=== PATIENT | male | born 1960 | race Caucasian/White ===

== ENCOUNTER 2018-12-14 08:51 | Inpatient (IN) | payer MEDICARE, MEDICAID ==
[~2018-12-14] VITALS: Ht 172.7 cm; Wt 81.4 kg
[~2018-12-14 08:51] MED LIST: CARI350T PO; PENI500T2 PO; TRAM50TA4 PO
[2018-12-14] MEDS ORDERED: LORazepam 2 MG/ML VIAL ONE (09:21)
[2018-12-14] MEDS ORDERED: HALOPERIDOL LACTATE 5 MG/ML VIAL ONE (09:21)
[2018-12-14] MEDS ORDERED: LORazepam 2 MG/ML VIAL IM ONE ×3 (09:30→16:30)
[2018-12-14] MEDS ORDERED: KETOROLAC TROMETHAMINE 30 MG/ML VIAL IM ONE (09:30)
[2018-12-14] MEDS ORDERED: HALOPERIDOL LACTATE 5 MG/ML VIAL IM ONE ×4 (09:30→16:30)
[2018-12-14 09:45] LABS: BASOPHILS % (AUTO) 0.8 % (0.0-2.0); EOSINOPHILS % (AUTO) 0.7 % (1.0-6.0); HEMATOCRIT 43.8 % (41-53); HEMOGLOBIN 14.4 g/dL (13.5-17.5); LYMPHOCYTES # (AUTO) 2.1 K/uL (1.0-4.8); LYMPHOCYTES % (AUTO) 16.5 % (22.0-44.0); MEAN CORPUSCULAR HEMOGLOBIN 31.1 pg (26.0-34.0); MEAN CORPUSCULAR HGB CONC 32.8 G/dL (31.0-37.0); MEAN CORPUSCULAR VOLUME 95 fL (80-100); MONOCYTES # (AUTO) 0.7 K/uL (0.1-1.0); MONOCYTES % (AUTO) 5.1 % (2.0-9.0); NEUTROPHILS # (AUTO) 9.9 K/uL (1.8-7.7); NEUTROPHILS % (AUTO) 76.9 % (40.0-70.0); PLATELET COUNT (AUTO) 271 K/uL (150-450); RED BLOOD CELL COUNT(AUTO) 4.61 MIL/uL (4.50-5.90); RED CELL DISTRIBUTION WIDTH 13.1 % (11.5-14.5)
[2018-12-14 09:58] LABS: ANION GAP 13 mmol/L (8-16); CARBON DIOXIDE 23 mmol/L (22-29); CHLORIDE 106 mmol/L (98-107); CREATININE 0.65 mg/dL (0.60-1.30); GLOMERULAR FILTR. RATE CALC > 60 mL/min (>60); GLUCOSE,RANDOM 123 mg/dL (70-110); POTASSIUM 3.8 mmol/L (3.5-5.1); SODIUM SERUM 142 mmol/L (136-145); UREA NITROGEN, BLOOD 15 mg/dL (7-18)
[2018-12-14 10:21] LABS: ALANINE AMINOTRANSFERASE 42 U/L (12-78); ALBUMIN 3.8 g/dL (3.4-5.0); ALKALINE PHOSPHATASE 79 U/L (46-116); ASPARTATE AMINOTRANSFERASE 29 U/L (15-37); BILIRUBIN,TOTAL 0.4 mg/dL (0.1-1.0); CREATINE KINASE, TOTAL ONLY 155 U/L (39-308); TOTAL PROTEIN, SERUM 7.6 g/dL (6.4-8.2)
[2018-12-14 15:23] LABS: APPEARANCE,URINE CLEAR (CLEAR); BILIRUBIN,URINE NEGATIVE (NEGATIVE); GLUCOSE, URINE (UA) NEGATIVE (NEGATIVE); KETONES,URINE NEGATIVE (NEGATIVE); LEUKOCYTE ESTERASE ,URINE NEGATIVE (NEGATIVE); NITRATE,URINE NEGATIVE (NEGATIVE); OCCULT BLOOD,URINE NEGATIVE (NEGATIVE); PROTEIN,URINE NEGATIVE (NEGATIVE); UROBILINOGEN,URINE 0.2 mg/dL (<=1.0)
[2018-12-14 15:28] LABS: AMPHET/METH SCREEN,URINE NEGATIVE (NEGATIVE); BARBITURATE SCREEN, URINE NEGATIVE (NEGATIVE); BENZODIAZEPINES SCREEN,URINE NEGATIVE (NEGATIVE); CANNABINOID SCREEN,URINE NEGATIVE (NEGATIVE); COCAINE SCREEN,URINE NEGATIVE (NEGATIVE); METHADONE SCREEN, URINE NEGATIVE (NEGATIVE); OPIATE SCREEN,URINE NEGATIVE (NEGATIVE); PHENCYCLIDINE SCREEN,URINE NEGATIVE (NEGATIVE)
[2018-12-14 15:34] LABS: BACTERIA,URINE None Seen /HPF (None Seen); RBC,URINE 0-2 /HPF (0-2); SQUAMOUS EPITHELIAL CELL,UR Rare /LPF (None Seen); WBC,URINE 0-2 /HPF (0-5)
[2018-12-14] MEDS ORDERED: DiphenhydrAMINE HCL 50 MG/ML VIAL IM ONE (16:30)
[2018-12-14] MEDS ORDERED: IBUPROFEN 600 MG TABLET PO ONE (19:15)
[2018-12-14] MEDS: QUEtiapine FUMARATE 100 MG TABLET PO SCH (20:13)
[2018-12-14] MEDS ORDERED: LORazepam 1 MG TABLET PO ONE (20:45)
[2018-12-15 02:22] VITALS: BP 103/78
[2018-12-15] MEDS: LORazepam 2 MG TABLET PO PRN ×3 (03:02→18:54)
[2018-12-15] MEDS ORDERED: ACETAMINOPHEN 325 MG TABLET PO PRN ×2 (06:30→23:45)
[2018-12-15] MEDS ORDERED: IBUPROFEN 600 MG TABLET PO PRN (06:30)
[2018-12-15 09:31] VITALS: BP 130/86
[2018-12-15] MEDS: VENLAFAXINE HCL 75 MG ER CAPSULE PO SCH (10:42)
[2018-12-15] MEDS: HALOPERIDOL 5 MG TABLET PO PRN ×2 (13:01→18:54)
[2018-12-15 16:26] VITALS: BP 135/87
[2018-12-15] MEDS: QUEtiapine FUMARATE 100 MG TABLET PO SCH (20:58)
[2018-12-16 04:43] VITALS: BP 120/69
[2018-12-16] MEDS: LORazepam 2 MG TABLET PO PRN ×2 (04:51→13:09)
[2018-12-16 06:57] LABS: BASOPHILS % (AUTO) 0.6 % (0.0-2.0); EOSINOPHILS % (AUTO) 2.1 % (1.0-6.0); HEMATOCRIT 43.2 % (41-53); MEAN CORPUSCULAR HEMOGLOBIN 32.2 pg (26.0-34.0); MEAN CORPUSCULAR HGB CONC 34.6 G/dL (31.0-37.0); MEAN CORPUSCULAR VOLUME 93 fL (80-100); MONOCYTES # (AUTO) 0.7 K/uL (0.1-1.0); MONOCYTES % (AUTO) 6.9 % (2.0-9.0); NEUTROPHILS # (AUTO) 6.4 K/uL (1.8-7.7); NEUTROPHILS % (AUTO) 61.4 % (40.0-70.0); PLATELET COUNT (AUTO) 282 K/uL (150-450); RED BLOOD CELL COUNT(AUTO) 4.64 MIL/uL (4.50-5.90); RED CELL DISTRIBUTION WIDTH 12.8 % (11.5-14.5)
[2018-12-16 07:38] LABS: CHOL/HDL RATIO 4.9 (4.2-7.3); FREE T4 (FREE THYROXINE) 0.79 ng/dL (0.76-1.46); THYROID STIMULATING HORMONE 1.72 uIU/mL (0.36-3.74)
[2018-12-16 08:49] VITALS: BP 156/69
[2018-12-16] MEDS: HALOPERIDOL 5 MG TABLET PO PRN ×2 (08:49→13:09)
[2018-12-16] MEDS: VENLAFAXINE HCL 75 MG ER CAPSULE PO SCH (08:49)
[2018-12-16] MEDS: CEPHALEXIN MONOHYDRATE 500 MG CAPSULE PO SCH ×3 (13:09→20:19)
[2018-12-16] MEDS: IBUPROFEN 600 MG TABLET PO PRN (14:29)
[2018-12-16 17:16] VITALS: BP 132/70
[2018-12-16] MEDS: QUEtiapine FUMARATE 100 MG TABLET PO SCH (20:19)
[2018-12-17 01:50] VITALS: BP 145/77
[2018-12-17] MEDS: LORazepam 2 MG TABLET PO PRN ×3 (02:09→21:43)
[2018-12-17] MEDS: VENLAFAXINE HCL 75 MG ER CAPSULE PO SCH (10:09)
[2018-12-17] MEDS: CEPHALEXIN MONOHYDRATE 500 MG CAPSULE PO SCH ×4 (10:09→21:43)
[2018-12-17] MEDS: HALOPERIDOL 5 MG TABLET PO PRN (10:10)
[2018-12-17] MEDS: IBUPROFEN 600 MG TABLET PO PRN (10:10)
[2018-12-17 17:41] VITALS: BP 119/68
[2018-12-17] MEDS: QUEtiapine FUMARATE 100 MG TABLET PO SCH (21:43)
[2018-12-18 09:54] VITALS: BP 144/92
[2018-12-18] MEDS: CEPHALEXIN MONOHYDRATE 500 MG CAPSULE PO SCH ×4 (09:56→20:10)
[2018-12-18] MEDS: IBUPROFEN 600 MG TABLET PO PRN (09:56)
[2018-12-18] MEDS: VENLAFAXINE HCL 75 MG ER CAPSULE PO SCH (09:56)
[2018-12-18] MEDS: LORazepam 2 MG TABLET PO PRN ×2 (09:56→20:39)
[2018-12-18 16:52] VITALS: BP 133/90
[2018-12-18] MEDS: QUEtiapine FUMARATE 100 MG TABLET PO SCH (20:10)
[2018-12-18] MEDS: HALOPERIDOL 5 MG TABLET PO PRN (20:39)
[2018-12-19] MEDS: HALOPERIDOL 5 MG TABLET PO PRN ×2 (02:08→17:05)
[2018-12-19] MEDS: LORazepam 2 MG TABLET PO PRN ×2 (02:09→17:05)
[2018-12-19 05:55] VITALS: BP 128/90
[2018-12-19 10:00] VITALS: BP 146/92
[2018-12-19] MEDS: CEPHALEXIN MONOHYDRATE 500 MG CAPSULE PO SCH ×4 (10:02→21:19)
[2018-12-19] MEDS: VENLAFAXINE HCL 75 MG ER CAPSULE PO SCH (10:02)
[2018-12-19] MEDS: IBUPROFEN 600 MG TABLET PO PRN (10:03)
[2018-12-19] MEDS: AmLODIPine BESYLATE 2.5 MG TABLET PO SCH (11:02)
[2018-12-19 16:37] VITALS: BP 117/73
[2018-12-19] MEDS: QUEtiapine FUMARATE 100 MG TABLET PO SCH (21:19)
[2018-12-20] MEDS: LORazepam 2 MG TABLET PO PRN ×2 (00:02→09:08)
[2018-12-20] MEDS: IBUPROFEN 600 MG TABLET PO PRN ×2 (00:02→09:08)
[2018-12-20 00:04] VITALS: BP 142/73
[2018-12-20 09:06] VITALS: BP 146/95
[2018-12-20] MEDS: VENLAFAXINE HCL 75 MG ER CAPSULE PO SCH (09:08)
[2018-12-20] MEDS: CEPHALEXIN MONOHYDRATE 500 MG CAPSULE PO SCH ×3 (09:08→17:16)
[2018-12-20] MEDS: AmLODIPine BESYLATE 2.5 MG TABLET PO SCH (09:08)
[2018-12-20] MEDS ORDERED: VENL-67 PO (10:13)
[2018-12-20] MEDS ORDERED: QUET100T PO (10:13)
[2018-12-20] MEDS ORDERED: AMLO2.5T4 PO (10:15)
[2018-12-20] MEDS ORDERED: CEPH500 PO (10:16)
== END 2018-12-20 17:30 | disposition home or self-care (01) | DRG 885 ==
LOC: EMS 08:52 → 3EI 12-15 01:11
PROVIDERS: ADMIT Psychiatry & Neurology Psychiatry; ATTEND Psychiatry & Neurology Psychiatry
DX: F33.2 Major depressive disorder, recurrent severe without psychotic features (principal); R45.851 Suicidal ideations; F17.210 Nicotine dependence, cigarettes, uncomplicated; D72.829 Elevated white blood cell count, unspecified; Z91.19 Patient's noncompliance with other medical treatment and regimen; Z91.5 Personal history of self-harm; M54.2 Cervicalgia
CPT/HCPCS: 73552; 80074; 83036; 84439; 84443; 96372; G0480; J1200; J1630; J1885; J2060

== ENCOUNTER 2018-12-21 01:33 | Emergency (ER) | payer OTHER ==
[~2018-12-21] VITALS: Ht 172.7 cm; Wt 81.8 kg
[~2018-12-21 01:33] MED LIST changes: +AMLO2.5T4 PO; +CEPH500 PO; +QUET100T PO; +VENL-67 PO
[2018-12-21] MEDS ORDERED: METHOCARBAMOL 500 MG TABLET PO ONE (02:00)
[2018-12-21] MEDS ORDERED: DIAZEPAM 5 MG/ML 2 ML SYRINGE IM ONE (02:45)
[2018-12-21 03:34] VITALS: BP 140/80
== END 2018-12-21 03:56 | disposition home or self-care (01) ==
LOC: EMS 01:36
DX: S76.912A Strain of unspecified muscles, fascia and tendons at thigh level, left thigh, initial encounter (principal); W19.XXXA Unspecified fall, initial encounter; Y93.89 Activity, other specified; Y92.89 Other specified places as the place of occurrence of the external cause; Y99.8 Other external cause status
CPT/HCPCS: 96372; 99283; J1885

== ENCOUNTER 2019-01-05 05:35 | Inpatient (IN) | payer OTHER ==
[~2019-01-05] VITALS: Ht 172.7 cm; Wt 81.0 kg
[~2019-01-05 05:35] MED LIST changes: -CARI350T PO; -PENI500T2 PO; -TRAM50TA4 PO
[2019-01-05] MEDS ORDERED: HALOPERIDOL LACTATE 5 MG/ML VIAL IM ONE ×2 (07:00→08:45)
[2019-01-05] MEDS ORDERED: DiphenhydrAMINE HCL 50 MG/ML VIAL IM ONE ×2 (07:00→08:45)
[2019-01-05] MEDS ORDERED: LORazepam 2 MG/ML VIAL IM ONE ×2 (07:00→08:45)
[2019-01-05 09:13] LABS: BASOPHILS % (AUTO) 0.4 % (0.0-2.0); EOSINOPHILS % (AUTO) 0.3 % (1.0-6.0); HEMATOCRIT 39.5 % (41-53); HEMOGLOBIN 13.1 g/dL (13.5-17.5); LYMPHOCYTES # (AUTO) 2.1 K/uL (1.0-4.8); LYMPHOCYTES % (AUTO) 16.9 % (22.0-44.0); MEAN CORPUSCULAR HEMOGLOBIN 31.1 pg (26.0-34.0); MEAN CORPUSCULAR HGB CONC 33.2 G/dL (31.0-37.0); MEAN CORPUSCULAR VOLUME 94 fL (80-100); MONOCYTES # (AUTO) 0.7 K/uL (0.1-1.0); MONOCYTES % (AUTO) 5.3 % (2.0-9.0); NEUTROPHILS # (AUTO) 9.6 K/uL (1.8-7.7); NEUTROPHILS % (AUTO) 77.1 % (40.0-70.0); PLATELET COUNT (AUTO) 283 K/uL (150-450); RED BLOOD CELL COUNT(AUTO) 4.22 MIL/uL (4.50-5.90)
[2019-01-05 09:35] LABS: ANION GAP 15 mmol/L (8-16); CALCIUM, TOTAL 9.1 mg/dL (8.8-10.5); CARBON DIOXIDE 23 mmol/L (22-29); CHLORIDE 105 mmol/L (98-107); GLOMERULAR FILTR. RATE CALC > 60 mL/min (>60); GLUCOSE,RANDOM 102 mg/dL (70-110); POTASSIUM 3.3 mmol/L (3.5-5.1); SODIUM SERUM 143 mmol/L (136-145); UREA NITROGEN, BLOOD 19 mg/dL (7-18)
[2019-01-05 09:46] LABS: LACTIC ACID 1.9 mmol/L (0.4-2.0)
[2019-01-05 09:59] LABS: ALANINE AMINOTRANSFERASE 42 U/L (12-78); ALBUMIN 3.8 g/dL (3.4-5.0); ALKALINE PHOSPHATASE 81 U/L (46-116); ASPARTATE AMINOTRANSFERASE 32 U/L (15-37); BILIRUBIN,TOTAL 0.6 mg/dL (0.1-1.0); CREATINE KINASE, TOTAL ONLY 408 U/L (39-308); TOTAL PROTEIN, SERUM 7.1 g/dL (6.4-8.2)
[2019-01-05] MEDS ORDERED: ONDANSETRON HCL 4 MG TABLET PO ONE (10:00)
[2019-01-05] MEDS ORDERED: OxyCODONE HCL/ACETAMINOPHEN 5-325 MG TABLET PO ONE (10:00)
[2019-01-05 13:08] VITALS: BP 122/84
[2019-01-05] MEDS ORDERED: ACETAMINOPHEN 325 MG TABLET PO PRN (13:15)
[2019-01-05] MEDS ORDERED: BACITRACIN 0.9 GM PACKET OINTMENT TP ONE (13:15)
[2019-01-05 16:15] VITALS: BP 126/78
[2019-01-05] MEDS: QUEtiapine FUMARATE 100 MG TABLET PO SCH (20:54)
[2019-01-05] MEDS ORDERED: POTASSIUM CHLORIDE 20 MEQ ER TABLET PO ONE (22:00)
[2019-01-05] MEDS: ZOLPIDEM TARTRATE 10 MG TABLET PO PRN (23:44)
[2019-01-06] MEDS: LORazepam 2 MG TABLET PO PRN ×2 (03:04→09:26)
[2019-01-06 03:55] VITALS: BP 130/72
[2019-01-06] MEDS: AmLODIPine BESYLATE 2.5 MG TABLET PO SCH (09:26)
[2019-01-06] MEDS: HALOPERIDOL 5 MG TABLET PO PRN (09:26)
[2019-01-06] MEDS: VENLAFAXINE HCL 75 MG ER CAPSULE PO SCH (09:26)
[2019-01-06 10:04] VITALS: BP 129/77
[2019-01-06 10:23] VITALS: BP 160/70
[2019-01-06] MEDS: IBUPROFEN 600 MG TABLET PO PRN (10:23)
[2019-01-06] MEDS: BACITRACIN 28.4 GM OINTMENT TP SCH (10:41)
[2019-01-06 16:39] VITALS: BP 145/73
[2019-01-06] MEDS: QUEtiapine FUMARATE 100 MG TABLET PO SCH (20:35)
[2019-01-07] MEDS: ZOLPIDEM TARTRATE 10 MG TABLET PO PRN (02:48)
[2019-01-07] MEDS: LORazepam 2 MG TABLET PO PRN ×2 (02:48→10:30)
[2019-01-07] MEDS: HALOPERIDOL 5 MG TABLET PO PRN ×2 (02:48→10:30)
[2019-01-07 03:40] VITALS: BP 134/100
[2019-01-07] MEDS: AmLODIPine BESYLATE 2.5 MG TABLET PO SCH (08:27)
[2019-01-07] MEDS: VENLAFAXINE HCL 75 MG ER CAPSULE PO SCH (08:27)
[2019-01-07] MEDS: MULTIVITAMINS WITH MINERALS, THERAPEUTIC TABLET PO SCH (08:27)
[2019-01-07 08:44] VITALS: BP 154/90
[2019-01-07] MEDS: IBUPROFEN 600 MG TABLET PO PRN (10:30)
[2019-01-07] MEDS: BACITRACIN 28.4 GM OINTMENT TP SCH (10:31)
[2019-01-07] MEDS: QUEtiapine FUMARATE 100 MG TABLET PO SCH (20:38)
[2019-01-07 20:42] VITALS: BP 149/82
[2019-01-08] MEDS: MULTIVITAMINS WITH MINERALS, THERAPEUTIC TABLET PO SCH (08:52)
[2019-01-08] MEDS: VENLAFAXINE HCL 75 MG ER CAPSULE PO SCH (08:52)
[2019-01-08] MEDS: AmLODIPine BESYLATE 5 MG TABLET PO SCH (08:52)
[2019-01-08 09:51] VITALS: BP 160/90
[2019-01-08] MEDS: BACITRACIN 28.4 GM OINTMENT TP SCH (12:26)
[2019-01-08 16:00] VITALS: BP 126/79
[2019-01-08] MEDS: QUEtiapine FUMARATE 100 MG TABLET PO SCH (20:30)
[2019-01-09 08:00] VITALS: BP 169/100
[2019-01-09] MEDS: VENLAFAXINE HCL 75 MG ER CAPSULE PO SCH (09:46)
[2019-01-09] MEDS: MULTIVITAMINS WITH MINERALS, THERAPEUTIC TABLET PO SCH (09:46)
[2019-01-09] MEDS: AmLODIPine BESYLATE 5 MG TABLET PO SCH (09:46)
[2019-01-09 10:05] VITALS: BP 150/89
[2019-01-09 10:21] VITALS: BP 154/90
[2019-01-09] MEDS: BACITRACIN 28.4 GM OINTMENT TP SCH (13:16)
[2019-01-09] MEDS: LORazepam 2 MG TABLET PO PRN (14:54)
[2019-01-09] MEDS: HALOPERIDOL 5 MG TABLET PO PRN (14:54)
== END 2019-01-09 17:45 | disposition home or self-care (01) | DRG 885 ==
LOC: EMS 05:37 → 3EI 10:53
PROVIDERS: ATTEND Psychiatry & Neurology Psychiatry
DX: F33.2 Major depressive disorder, recurrent severe without psychotic features (principal); R45.851 Suicidal ideations; M62.82 Rhabdomyolysis; F41.9 Anxiety disorder, unspecified; I10 Essential (primary) hypertension; F12.90 Cannabis use, unspecified, uncomplicated; D72.829 Elevated white blood cell count, unspecified; D64.9 Anemia, unspecified; E78.5 Hyperlipidemia, unspecified; E87.6 Hypokalemia; F10.10 Alcohol abuse, uncomplicated; R41.843 Psychomotor deficit; Z80.9 Family history of malignant neoplasm, unspecified; G20 Parkinson's disease
CPT/HCPCS: 70450; 73503; 83605; 87081; 93971; G0480; J1200; J1630; J2060; Q0162

== ENCOUNTER 2019-01-22 12:33 | Inpatient (IN) | payer OTHER, MEDICAID ==
[~2019-01-22] VITALS: Ht 172.7 cm; Wt 84.5 kg
[~2019-01-22 12:33] MED LIST changes: -CEPH500 PO
[2019-01-22] MEDS ORDERED: OLAN2.5T3 PO (12:46)
[2019-01-22] MEDS ORDERED: QUET100T PO (12:46)
[2019-01-22] MEDS ORDERED: ROPI0.257 PO (12:46)
[2019-01-22] MEDS ORDERED: LORazepam 1 MG TABLET PO ONE (13:45)
[2019-01-22 14:09] LABS: AMPHET/METH SCREEN,URINE NEGATIVE (NEGATIVE); BARBITURATE SCREEN, URINE NEGATIVE (NEGATIVE); BENZODIAZEPINES SCREEN,URINE NEGATIVE (NEGATIVE); BILIRUBIN,URINE NEGATIVE (NEGATIVE); CANNABINOID SCREEN,URINE NEGATIVE (NEGATIVE); COCAINE SCREEN,URINE NEGATIVE (NEGATIVE); GLUCOSE, URINE (UA) NEGATIVE (NEGATIVE); KETONES,URINE NEGATIVE (NEGATIVE); LEUKOCYTE ESTERASE ,URINE NEGATIVE (NEGATIVE); METHADONE SCREEN, URINE NEGATIVE (NEGATIVE); NITRATE,URINE NEGATIVE (NEGATIVE); OCCULT BLOOD,URINE NEGATIVE (NEGATIVE); OPIATE SCREEN,URINE NEGATIVE (NEGATIVE); PROTEIN,URINE NEGATIVE (NEGATIVE); UROBILINOGEN,URINE 0.2 mg/dL (<=1.0)
[2019-01-22 14:11] LABS: APPEARANCE,URINE CLEAR (CLEAR); PHENCYCLIDINE SCREEN,URINE NEGATIVE (NEGATIVE)
[2019-01-22] MEDS ORDERED: HALOPERIDOL 5 MG TABLET PO PRN (15:00)
[2019-01-22] MEDS ORDERED: ZOLPIDEM TARTRATE 10 MG TABLET PO PRN (15:00)
[2019-01-22] MEDS ORDERED: ACETAMINOPHEN 325 MG TABLET PO PRN (15:45)
[2019-01-22] MEDS ORDERED: IBUPROFEN 600 MG TABLET PO PRN (15:45)
[2019-01-22 19:30] VITALS: BP 133/88
[2019-01-22] MEDS: ATORVASTATIN CALCIUM 10 MG TABLET PO SCH (20:41)
[2019-01-22] MEDS: LORazepam 2 MG TABLET PO PRN (20:41)
[2019-01-23] VITALS (9 sets, daily range): BP systolic 108–138; BP diastolic 60–88
[2019-01-23] MEDS: AmLODIPine BESYLATE 10 MG TABLET PO SCH (08:33)
[2019-01-23] MEDS: VENLAFAXINE HCL 75 MG ER CAPSULE PO SCH (08:33)
[2019-01-23] MEDS: LORazepam 2 MG TABLET PO PRN (13:18)
[2019-01-23] MEDS: ATORVASTATIN CALCIUM 10 MG TABLET PO SCH (20:30)
[2019-01-23] MEDS: QUEtiapine FUMARATE 300 MG TABLET PO SCH (20:30)
[2019-01-24 07:09] VITALS: BP 106/65
[2019-01-24] MEDS: AmLODIPine BESYLATE 10 MG TABLET PO SCH (08:01)
[2019-01-24] MEDS: LORazepam 1 MG TABLET PO PRN ×2 (08:01→15:18)
[2019-01-24] MEDS: VENLAFAXINE HCL 75 MG ER CAPSULE PO SCH (08:01)
[2019-01-24 08:17] VITALS: BP 126/90
[2019-01-24 10:37] VITALS: BP 112/72
[2019-01-24 16:00] VITALS: BP 141/88
[2019-01-24] MEDS: QUEtiapine FUMARATE 300 MG TABLET PO SCH (20:28)
[2019-01-24] MEDS: ATORVASTATIN CALCIUM 10 MG TABLET PO SCH (20:28)
[2019-01-25 00:34] VITALS: BP 108/76
[2019-01-25 06:31] VITALS: BP 110/80
[2019-01-25] MEDS ORDERED: VENLAFAXINE HCL 150 MG ER CAPSULE PO SCH (09:00)
[2019-01-25 10:00] VITALS: BP 112/67
[2019-01-25] MEDS: AmLODIPine BESYLATE 10 MG TABLET PO SCH (10:00)
[2019-01-25] MEDS: LORazepam 1 MG TABLET PO PRN (10:52)
[2019-01-25 13:21] VITALS: BP 110/68
[2019-01-25] MEDS ORDERED: VENL-68 PO (14:56)
[2019-01-25] MEDS ORDERED: ATOR10TA84 PO (14:56)
[2019-01-25] MEDS ORDERED: AMLO10TA7 PO (14:56)
[2019-01-25 16:34] VITALS: BP 107/85
== END 2019-01-25 18:15 | disposition home or self-care (01) | DRG 885 ==
LOC: EMS 12:33 → B2S 18:20
PROVIDERS: ADMIT Psychiatry & Neurology Psychiatry; ATTEND Psychiatry & Neurology Psychiatry
DX: F33.2 Major depressive disorder, recurrent severe without psychotic features (principal); R45.851 Suicidal ideations; D64.9 Anemia, unspecified; D72.829 Elevated white blood cell count, unspecified; E78.5 Hyperlipidemia, unspecified; F12.90 Cannabis use, unspecified, uncomplicated; F25.9 Schizoaffective disorder, unspecified; G20 Parkinson's disease; I10 Essential (primary) hypertension; M16.12 Unilateral primary osteoarthritis, left hip; Z87.891 Personal history of nicotine dependence; Z91.19 Patient's noncompliance with other medical treatment and regimen; Z91.5 Personal history of self-harm; Z80.9 Family history of malignant neoplasm, unspecified
CPT/HCPCS: 87081

== ENCOUNTER 2019-01-28 20:13 | Inpatient (IN) | payer OTHER, MEDICAID ==
[~2019-01-28] VITALS: Ht 172.7 cm; Wt 83.7 kg
[~2019-01-28 20:13] MED LIST changes: +AMLO10TA7 PO; -AMLO2.5T4 PO; +ATOR10TA84 PO; -VENL-67 PO; +VENL-68 PO
[2019-01-28] MEDS ORDERED: QUET300T2 PO (20:29)
[2019-01-28 21:43] LABS: AMPHET/METH SCREEN,URINE NEGATIVE (NEGATIVE); BARBITURATE SCREEN, URINE NEGATIVE (NEGATIVE); BENZODIAZEPINES SCREEN,URINE NEGATIVE (NEGATIVE); CANNABINOID SCREEN,URINE NEGATIVE (NEGATIVE); COCAINE SCREEN,URINE NEGATIVE (NEGATIVE); METHADONE SCREEN, URINE NEGATIVE (NEGATIVE); OPIATE SCREEN,URINE NEGATIVE (NEGATIVE); PHENCYCLIDINE SCREEN,URINE NEGATIVE (NEGATIVE)
[2019-01-28] MEDS ORDERED: HALOPERIDOL 5 MG TABLET PO ONE (21:45)
[2019-01-28 21:49] LABS: BASOPHILS % (AUTO) 0.8 % (0.0-2.0); EOSINOPHILS % (AUTO) 1.8 % (1.0-6.0); HEMATOCRIT 41.6 % (41-53); HEMOGLOBIN 13.6 g/dL (13.5-17.5); LYMPHOCYTES % (AUTO) 31.2 % (22.0-44.0); MEAN CORPUSCULAR HEMOGLOBIN 31.5 pg (26.0-34.0); MEAN CORPUSCULAR HGB CONC 32.7 G/dL (31.0-37.0); MEAN CORPUSCULAR VOLUME 96 fL (80-100); MONOCYTES # (AUTO) 0.7 K/uL (0.1-1.0); MONOCYTES % (AUTO) 6.8 % (2.0-9.0); NEUTROPHILS # (AUTO) 5.7 K/uL (1.8-7.7); NEUTROPHILS % (AUTO) 59.4 % (40.0-70.0); PLATELET COUNT (AUTO) 287 K/uL (150-450); RED BLOOD CELL COUNT(AUTO) 4.32 MIL/uL (4.50-5.90); RED CELL DISTRIBUTION WIDTH 13.6 % (11.5-14.5)
[2019-01-28 21:59] LABS: ANION GAP 12 mmol/L (8-16); CALCIUM, TOTAL 8.9 mg/dL (8.8-10.5); CARBON DIOXIDE 23 mmol/L (22-29); CHLORIDE 104 mmol/L (98-107); CREATININE 0.67 mg/dL (0.60-1.30); GLOMERULAR FILTR. RATE CALC > 60 mL/min (>60); GLUCOSE,RANDOM 117 mg/dL (70-110); POTASSIUM 3.9 mmol/L (3.5-5.1); SODIUM SERUM 139 mmol/L (136-145); UREA NITROGEN, BLOOD 20 mg/dL (7-18)
[2019-01-28 22:08] LABS: ALANINE AMINOTRANSFERASE 37 U/L (12-78); ALBUMIN 3.7 g/dL (3.4-5.0); ALKALINE PHOSPHATASE 101 U/L (46-116); ASPARTATE AMINOTRANSFERASE 26 U/L (15-37); BILIRUBIN,TOTAL 0.3 mg/dL (0.1-1.0); TOTAL PROTEIN, SERUM 7.4 g/dL (6.4-8.2)
[2019-01-29 01:29] VITALS: BP 137/81
[2019-01-29 08:20] VITALS: BP 116/89
[2019-01-29] MEDS: LORazepam 1 MG TABLET PO PRN ×2 (10:23→18:17)
[2019-01-29] MEDS ORDERED: LORazepam 2 MG/ML VIAL ONE (12:13)
[2019-01-29] MEDS ORDERED: DiphenhydrAMINE HCL 50 MG/ML VIAL ONE (12:13)
[2019-01-29] MEDS ORDERED: HALOPERIDOL LACTATE 5 MG/ML VIAL ONE (12:13)
[2019-01-29] MEDS ORDERED: LORazepam 2 MG/ML VIAL IM ONE (14:15)
[2019-01-29] MEDS ORDERED: HALOPERIDOL LACTATE 5 MG/ML VIAL IM ONE (14:15)
[2019-01-29] MEDS ORDERED: DiphenhydrAMINE HCL 50 MG/ML VIAL IM ONE (14:15)
[2019-01-29 17:19] VITALS: BP 136/82
[2019-01-29] MEDS: HALOPERIDOL 5 MG TABLET PO PRN (18:17)
[2019-01-29] MEDS ORDERED: ACETAMINOPHEN 325 MG TABLET PO PRN (20:00)
[2019-01-29] MEDS: ZOLPIDEM TARTRATE 10 MG TABLET PO PRN (20:28)
[2019-01-29] MEDS: QUEtiapine FUMARATE 300 MG TABLET PO SCH (20:28)
[2019-01-29] MEDS: ATORVASTATIN CALCIUM 10 MG TABLET PO SCH (20:31)
[2019-01-30 08:01] VITALS: BP 116/71
[2019-01-30] MEDS: AmLODIPine BESYLATE 10 MG TABLET PO SCH (08:17)
[2019-01-30] MEDS: VENLAFAXINE HCL 150 MG ER CAPSULE PO SCH (08:17)
[2019-01-30] MEDS: LORazepam 1 MG TABLET PO PRN ×2 (08:22→17:26)
[2019-01-30] MEDS: HALOPERIDOL 5 MG TABLET PO PRN ×2 (13:01→17:26)
[2019-01-30 16:02] VITALS: BP 124/78
[2019-01-30] MEDS: QUEtiapine FUMARATE 300 MG TABLET PO SCH (20:15)
[2019-01-30] MEDS: ATORVASTATIN CALCIUM 10 MG TABLET PO SCH (20:15)
[2019-01-30] MEDS: ZOLPIDEM TARTRATE 10 MG TABLET PO PRN (20:15)
[2019-01-31 08:00] VITALS: BP 116/73
[2019-01-31] MEDS: AmLODIPine BESYLATE 10 MG TABLET PO SCH (08:35)
[2019-01-31] MEDS: LORazepam 1 MG TABLET PO PRN ×3 (08:35→18:51)
[2019-01-31] MEDS: VENLAFAXINE HCL 150 MG ER CAPSULE PO SCH (08:35)
[2019-01-31] MEDS: HALOPERIDOL 5 MG TABLET PO PRN ×2 (13:31→18:51)
[2019-01-31 16:29] VITALS: BP 119/71
[2019-01-31] MEDS: ATORVASTATIN CALCIUM 10 MG TABLET PO SCH (20:48)
[2019-01-31] MEDS: QUEtiapine FUMARATE 300 MG TABLET PO SCH (20:48)
[2019-02-01 08:19] VITALS: BP 123/80
[2019-02-01] MEDS: AmLODIPine BESYLATE 10 MG TABLET PO SCH (09:04)
[2019-02-01] MEDS: VENLAFAXINE HCL 150 MG ER CAPSULE PO SCH (09:04)
[2019-02-01] MEDS: IBUPROFEN 600 MG TABLET PO PRN (09:38)
[2019-02-01] MEDS: LORazepam 1 MG TABLET PO PRN ×2 (10:02→17:25)
[2019-02-01 16:10] VITALS: BP 123/87
[2019-02-01] MEDS: QUEtiapine FUMARATE 300 MG TABLET PO SCH (20:05)
[2019-02-01] MEDS: ATORVASTATIN CALCIUM 10 MG TABLET PO SCH (20:05)
[2019-02-02 08:13] VITALS: BP 112/85
[2019-02-02] MEDS: AmLODIPine BESYLATE 10 MG TABLET PO SCH (08:27)
[2019-02-02] MEDS: VENLAFAXINE HCL 150 MG ER CAPSULE PO SCH (08:27)
[2019-02-02] MEDS: IBUPROFEN 600 MG TABLET PO PRN (08:53)
[2019-02-02] MEDS: LORazepam 1 MG TABLET PO PRN ×2 (08:53→18:05)
[2019-02-02 18:00] VITALS: BP 125/79
[2019-02-02] MEDS: ATORVASTATIN CALCIUM 10 MG TABLET PO SCH (20:11)
[2019-02-02] MEDS: QUEtiapine FUMARATE 300 MG TABLET PO SCH (20:11)
[2019-02-03 09:10] VITALS: BP 122/81
[2019-02-03] MEDS: AmLODIPine BESYLATE 10 MG TABLET PO SCH (09:17)
[2019-02-03] MEDS: VENLAFAXINE HCL 75 MG ER CAPSULE PO SCH (09:17)
[2019-02-03] MEDS: LORazepam 1 MG TABLET PO PRN ×2 (10:21→19:30)
[2019-02-03] MEDS: HALOPERIDOL 5 MG TABLET PO PRN ×2 (14:16→19:33)
[2019-02-03 16:27] VITALS: BP 127/76
[2019-02-03] MEDS: QUEtiapine FUMARATE 300 MG TABLET PO SCH (20:49)
[2019-02-03] MEDS: ATORVASTATIN CALCIUM 10 MG TABLET PO SCH (20:49)
[2019-02-04 06:15] VITALS: BP 121/68
[2019-02-04] MEDS: VENLAFAXINE HCL 75 MG ER CAPSULE PO SCH ×2 (09:00→09:44)
[2019-02-04] MEDS: AmLODIPine BESYLATE 10 MG TABLET PO SCH ×2 (09:00→09:44)
[2019-02-04] MEDS ORDERED: VENL-68 PO (10:43)
== END 2019-02-04 13:00 | disposition home or self-care (01) | DRG 885 ==
LOC: EMS 20:14 → B2S 23:09 → B3A 23:38 → B2X 01-31 19:30
PROVIDERS: ADMIT Psychiatry & Neurology Psychiatry; ATTEND Psychiatry & Neurology Psychiatry
DX: F33.9 Major depressive disorder, recurrent, unspecified (principal); R45.851 Suicidal ideations; E78.5 Hyperlipidemia, unspecified; I10 Essential (primary) hypertension; M16.12 Unilateral primary osteoarthritis, left hip; D64.9 Anemia, unspecified; E87.6 Hypokalemia
CPT/HCPCS: 70450; 87081; G0480; J1200; J1630; J2060

== ENCOUNTER 2019-02-05 05:04 | Emergency (ER) | payer OTHER ==
[~2019-02-05] VITALS: Ht 172.7 cm; Wt 86.8 kg
[~2019-02-05 05:04] MED LIST changes: -AMLO10TA7 PO; -ATOR10TA84 PO; -QUET100T PO; +QUET300T2 PO
[2019-02-05] MEDS ORDERED: KETOROLAC TROMETHAMINE 60 MG/2 ML VIAL IM ONE (05:45)
[2019-02-05] MEDS ORDERED: ACETAMINOPHEN 325 MG TABLET PO ONE (06:30)
[2019-02-05 08:08] VITALS: BP 166/89
== END 2019-02-05 08:08 | disposition home or self-care (01) ==
LOC: EMS 05:07
DX: S80.212A Abrasion, left knee, initial encounter (principal); W19.XXXA Unspecified fall, initial encounter; Y93.89 Activity, other specified; Y92.89 Other specified places as the place of occurrence of the external cause; Y99.8 Other external cause status
CPT/HCPCS: 96372; 99283; J1885

== ENCOUNTER 2019-08-03 14:36 | Inpatient (IN) | payer MEDICARE, MEDICAID ==
[~2019-08-03] VITALS: Ht 172.7 cm; Wt 103.0 kg
[~2019-08-03 14:36] MED LIST changes: -VENL-68 PO
[2019-08-03] MEDS ORDERED: OLAN10TA3 PO (15:09)
[2019-08-03] MEDS ORDERED: ROPI0.257 PO (15:09)
[2019-08-03] MEDS ORDERED: QUET100T PO (15:09)
[2019-08-03] MEDS ORDERED: CHL25 PO (15:09)
[2019-08-03] MEDS ORDERED: VENL-193 PO (15:09)
[2019-08-03] MEDS ORDERED: AMLO5TAB9 PO (15:09)
[2019-08-03 16:12] LABS: BASOPHILS % (AUTO) 0.5 % (0.0-2.0); EOSINOPHILS % (AUTO) 1.5 % (1.0-6.0); HEMATOCRIT 40.9 % (41-53); HEMOGLOBIN 13.8 g/dL (13.5-17.5); LYMPHOCYTES # (AUTO) 2.3 K/uL (1.0-4.8); LYMPHOCYTES % (AUTO) 20.5 % (22.0-44.0); MEAN CORPUSCULAR HEMOGLOBIN 31.8 pg (26.0-34.0); MEAN CORPUSCULAR HGB CONC 33.7 G/dL (31.0-37.0); MEAN CORPUSCULAR VOLUME 94 fL (80-100); MONOCYTES # (AUTO) 0.7 K/uL (0.1-1.0); MONOCYTES % (AUTO) 6.2 % (2.0-9.0); NEUTROPHILS # (AUTO) 7.9 K/uL (1.8-7.7); NEUTROPHILS % (AUTO) 71.3 % (40.0-70.0); PLATELET COUNT (AUTO) 233 K/uL (150-450); RED BLOOD CELL COUNT(AUTO) 4.33 MIL/uL (4.50-5.90)
[2019-08-03 16:21] LABS: ANION GAP 10 mmol/L (8-16); CARBON DIOXIDE 26 mmol/L (22-29); CHLORIDE 105 mmol/L (98-107); CREATININE 0.68 mg/dL (0.60-1.30); GLOMERULAR FILTR. RATE CALC > 60 mL/min (>60); GLUCOSE,RANDOM 109 mg/dL (70-110); SODIUM SERUM 141 mmol/L (136-145); UREA NITROGEN, BLOOD 13 mg/dL (7-18)
[2019-08-03 16:27] LABS: ALANINE AMINOTRANSFERASE 36 U/L (12-78); ALBUMIN 4.2 g/dL (3.4-5.0); ALKALINE PHOSPHATASE 105 U/L (46-116); ASPARTATE AMINOTRANSFERASE 22 U/L (15-37); BILIRUBIN,TOTAL 0.3 mg/dL (0.1-1.0); TOTAL PROTEIN, SERUM 7.5 g/dL (6.4-8.2)
[2019-08-03] MEDS ORDERED: OLANZapine 5 MG TABLET PO ONE (19:30)
[2019-08-03] MEDS ORDERED: LORazepam 1 MG TABLET PO ONE (19:30)
[2019-08-03] MEDS ORDERED: QUEtiapine FUMARATE 100 MG TABLET PO ONE (19:30)
[2019-08-03] MEDS: ZOLPIDEM TARTRATE 10 MG TABLET PO PRN (21:29)
[2019-08-04 01:52] LABS: AMPHET/METH SCREEN,URINE NEGATIVE (NEGATIVE); BARBITURATE SCREEN, URINE NEGATIVE (NEGATIVE); BENZODIAZEPINES SCREEN,URINE NEGATIVE (NEGATIVE); CANNABINOID SCREEN,URINE NEGATIVE (NEGATIVE); COCAINE SCREEN,URINE NEGATIVE (NEGATIVE); METHADONE SCREEN, URINE NEGATIVE (NEGATIVE); OPIATE SCREEN,URINE NEGATIVE (NEGATIVE)
[2019-08-04 01:59] LABS: PHENCYCLIDINE SCREEN,URINE NEGATIVE (NEGATIVE)
[2019-08-04] MEDS: LORazepam 2 MG TABLET PO PRN (02:30)
[2019-08-04] MEDS: HALOPERIDOL 5 MG TABLET PO PRN (02:30)
[2019-08-04 04:29] LABS: CHOL/HDL RATIO 4.4 (4.2-7.3); CHOLESTEROL 166 mg/dL (131-200); FREE T4 (FREE THYROXINE) 0.64 ng/dL (0.76-1.46); HDL CHOLESTEROL 38 mg/dL (40-60); LDL CHOL (CALC.) 79 mg/dL (0-130); THYROID STIMULATING HORMONE 2.63 uIU/mL (0.36-3.74); TRIGLYCERIDES 245 mg/dL (15-150)
[2019-08-04 10:34] VITALS: BP 155/79
[2019-08-04] MEDS ORDERED: PNEUMOCOCCAL VACCINE POLYVALENT 0.5 ML VIAL [PPSV23] IM ONE (13:45)
[2019-08-04 16:33] VITALS: BP 104/71
[2019-08-04] MEDS: ZOLPIDEM TARTRATE 10 MG TABLET PO PRN (20:54)
[2019-08-05 08:32] VITALS: BP 123/68
[2019-08-05] MEDS: AmLODIPine BESYLATE 5 MG TABLET PO SCH (08:56)
[2019-08-05] MEDS: CHLORTHALIDONE 25 MG TABLET PO SCH (08:56)
[2019-08-05] MEDS: HALOPERIDOL 5 MG TABLET PO PRN (09:00)
[2019-08-05 16:19] VITALS: BP 116/80
[2019-08-05] MEDS ORDERED: ACETAMINOPHEN 325 MG TABLET PO PRN (16:30)
[2019-08-05] MEDS: IBUPROFEN 600 MG TABLET PO PRN (17:03)
[2019-08-05] MEDS: ZOLPIDEM TARTRATE 10 MG TABLET PO PRN (23:41)
[2019-08-06 00:58] VITALS: BP 105/69
[2019-08-06 01:36] VITALS: BP 105/69
[2019-08-06] MEDS: LORazepam 2 MG TABLET PO PRN (04:16)
[2019-08-06 08:11] VITALS: BP 111/61
[2019-08-06] MEDS: AmLODIPine BESYLATE 5 MG TABLET PO SCH (09:05)
[2019-08-06] MEDS: CHLORTHALIDONE 25 MG TABLET PO SCH (09:05)
[2019-08-06] MEDS: VENLAFAXINE HCL 75 MG ER CAPSULE PO SCH (13:02)
[2019-08-06 16:21] VITALS: BP 118/72
[2019-08-06] MEDS: IBUPROFEN 600 MG TABLET PO PRN (20:48)
[2019-08-06] MEDS ORDERED: ROPINIRole HCL 0.25 MG TABLET PO SCH (21:00)
[2019-08-06] MEDS ORDERED: QUEtiapine FUMARATE 200 MG TABLET PO SCH (21:00)
[2019-08-06] MEDS ORDERED: OLANZapine 10 MG TABLET PO SCH (21:00)
[2019-08-06] MEDS ORDERED: OLANZapine 5 MG TABLET PO SCH (21:00)
[2019-08-07] MEDS: ZOLPIDEM TARTRATE 10 MG TABLET PO PRN (02:20)
[2019-08-07 07:14] VITALS: BP 104/72
[2019-08-07] MEDS ORDERED: QUEtiapine FUMARATE 100 MG TABLET PO SCH (09:00)
[2019-08-07] MEDS: CHLORTHALIDONE 25 MG TABLET PO SCH (09:24)
[2019-08-07] MEDS: VENLAFAXINE HCL 75 MG ER CAPSULE PO SCH (09:24)
[2019-08-07] MEDS: AmLODIPine BESYLATE 5 MG TABLET PO SCH (09:24)
[2019-08-07 09:30] VITALS: BP 138/67
[2019-08-07] MEDS ORDERED: QUET200T PO (12:14)
[2019-08-07] MEDS ORDERED: VENL75CA55 PO (12:14)
[2019-08-07 16:15] VITALS: BP 103/70
== END 2019-08-07 20:02 | disposition home or self-care (01) | DRG 885 ==
LOC: EMS 14:41 → B2X 08-04 12:32
PROVIDERS: ADMIT Psychiatry & Neurology Psychiatry; ATTEND Psychiatry & Neurology Psychiatry
DX: F25.9 Schizoaffective disorder, unspecified (principal); R45.851 Suicidal ideations; E78.5 Hyperlipidemia, unspecified; D72.829 Elevated white blood cell count, unspecified; E78.1 Pure hyperglyceridemia; D64.9 Anemia, unspecified; I10 Essential (primary) hypertension; G25.81 Restless legs syndrome; M19.90 Unspecified osteoarthritis, unspecified site; R45.850 Homicidal ideations; Z87.891 Personal history of nicotine dependence; E87.6 Hypokalemia
CPT/HCPCS: 84439; 84443; G0480

== ENCOUNTER 2019-11-15 09:14 | Inpatient (IN) | payer MEDICARE, MEDICAID ==
[~2019-11-15] VITALS: Ht 172.7 cm; Wt 97.3 kg
[~2019-11-15 09:14] MED LIST changes: +AMLO5TAB9 PO; +CHL25 PO; +OLAN10TA3 PO; +QUET100T PO; +QUET200T PO; -QUET300T2 PO; +ROPI0.257 PO; +VENL75CA55 PO
[2019-11-15 09:35] LABS: BASOPHILS % (AUTO) 0.4 % (0.0-2.0); EOSINOPHILS % (AUTO) 0.5 % (1.0-6.0); HEMATOCRIT 41.5 % (41-53); HEMOGLOBIN 13.5 g/dL (13.5-17.5); LYMPHOCYTES # (AUTO) 1.5 K/uL (1.0-4.8); LYMPHOCYTES % (AUTO) 20.4 % (22.0-44.0); MEAN CORPUSCULAR HEMOGLOBIN 30.4 pg (26.0-34.0); MEAN CORPUSCULAR HGB CONC 32.6 G/dL (31.0-37.0); MEAN CORPUSCULAR VOLUME 93 fL (80-100); MONOCYTES # (AUTO) 0.5 K/uL (0.1-1.0); MONOCYTES % (AUTO) 6.6 % (2.0-9.0); NEUTROPHILS # (AUTO) 5.4 K/uL (1.8-7.7); NEUTROPHILS % (AUTO) 72.1 % (40.0-70.0); PLATELET COUNT (AUTO) 216 K/uL (150-450); RED BLOOD CELL COUNT(AUTO) 4.44 MIL/uL (4.50-5.90)
[2019-11-15] MEDS ORDERED: DiphenhydrAMINE HCL 25 MG CAPSULE ONE (09:44)
[2019-11-15] MEDS ORDERED: LORazepam 1 MG TABLET ONE (09:44)
[2019-11-15] MEDS ORDERED: HALOPERIDOL 5 MG TABLET ONE (09:44)
[2019-11-15] MEDS ORDERED: HALOPERIDOL 5 MG TABLET PO ONE (09:45)
[2019-11-15] MEDS ORDERED: LORazepam 1 MG TABLET PO ONE (09:45)
[2019-11-15] MEDS ORDERED: DiphenhydrAMINE HCL 25 MG CAPSULE PO ONE (09:45)
[2019-11-15 09:48] LABS: ANION GAP 11 mmol/L (8-16); CARBON DIOXIDE 25 mmol/L (22-29); CHLORIDE 107 mmol/L (98-107); CREATININE 0.76 mg/dL (0.60-1.30); GLOMERULAR FILTR. RATE CALC > 60 mL/min (>60); GLUCOSE,RANDOM 160 mg/dL (70-110); POTASSIUM 3.7 mmol/L (3.5-5.1); SODIUM SERUM 143 mmol/L (136-145); UREA NITROGEN, BLOOD 26 mg/dL (7-18)
[2019-11-15 09:53] LABS: ALANINE AMINOTRANSFERASE 31 U/L (12-78); ALBUMIN 3.9 g/dL (3.4-5.0); ALKALINE PHOSPHATASE 72 U/L (46-116); ASPARTATE AMINOTRANSFERASE 19 U/L (15-37); BILIRUBIN,TOTAL 0.2 mg/dL (0.1-1.0); TOTAL PROTEIN, SERUM 7.5 g/dL (6.4-8.2)
[2019-11-15] MEDS ORDERED: DIVA-78 PO (10:51)
[2019-11-15] MEDS ORDERED: HALOPERIDOL 5 MG TABLET PO PRN (11:15)
[2019-11-15] MEDS ORDERED: ZOLPIDEM TARTRATE 10 MG TABLET PO PRN (11:15)
[2019-11-15 14:22] VITALS: BP 161/98
[2019-11-15] MEDS: AmLODIPine BESYLATE 5 MG TABLET PO SCH (14:33)
[2019-11-15 16:38] VITALS: BP 150/83
[2019-11-15] MEDS ORDERED: GuaiFENesin/D-METHORPHAN [SUGAR-FREE] 200-20MG/10 ML SYRUP UDCUP PO PRN (17:15)
[2019-11-15] MEDS ORDERED: NICOTINE 14 MG/24 HOUR PATCH TD PRN (17:15)
[2019-11-15] MEDS ORDERED: PETROLATUM,WHITE 28 GM JELLY TP PRN (17:15)
[2019-11-15] MEDS ORDERED: IBUPROFEN 400 MG TABLET PO PRN (17:15)
[2019-11-15] MEDS ORDERED: LOPERAMIDE HCL 2 MG CAPSULE PO PRN (17:15)
[2019-11-15] MEDS ORDERED: MAGNESIUM HYDROXIDE SUSPENSION 30 ML UDCUP PO PRN (17:15)
[2019-11-15] MEDS ORDERED: ALBUTEROL SULFATE HFA 90 MCG/PUFF 8 GM INHALER IH PRN (17:15)
[2019-11-15] MEDS ORDERED: MAG HYDROX/AL HYDROX/SIMETH ES 30 ML SUSPENSION UDCUP PO PRN (17:15)
[2019-11-15] MEDS ORDERED: ONDANSETRON HCL 4 MG TABLET PO PRN (17:15)
[2019-11-15] MEDS ORDERED: ACETAMINOPHEN 325 MG TABLET PO PRN (17:15)
[2019-11-15] MEDS ORDERED: DOCUSATE SODIUM 100 MG CAPSULE PO PRN (17:15)
[2019-11-15] MEDS ORDERED: CloNIDine HCL 0.1 MG TABLET PO PRN (17:15)
[2019-11-15] MEDS: QUEtiapine FUMARATE 200 MG TABLET PO SCH (20:21)
[2019-11-15] MEDS: OLANZapine 10 MG TABLET PO SCH (20:21)
[2019-11-16] MEDS ORDERED: PNEUMOCOCCAL VACCINE POLYVALENT 0.5 ML VIAL [PPSV23] IM ONE (04:30)
[2019-11-16] MEDS: AmLODIPine BESYLATE 5 MG TABLET PO SCH (09:00)
[2019-11-16] MEDS: CHLORTHALIDONE 25 MG TABLET PO SCH (09:00)
[2019-11-16] MEDS: VENLAFAXINE HCL 75 MG ER CAPSULE PO SCH (09:00)
[2019-11-16] MEDS: QUEtiapine FUMARATE 100 MG TABLET PO SCH (09:00)
[2019-11-16] MEDS: LORazepam 2 MG TABLET PO PRN (11:07)
[2019-11-16] MEDS: QUEtiapine FUMARATE 200 MG TABLET PO SCH (21:28)
[2019-11-16] MEDS: OLANZapine 10 MG TABLET PO SCH (21:28)
[2019-11-17] MEDS: QUEtiapine FUMARATE 100 MG TABLET PO SCH (09:00)
[2019-11-17] MEDS: AmLODIPine BESYLATE 5 MG TABLET PO SCH (09:00)
[2019-11-17] MEDS: CHLORTHALIDONE 25 MG TABLET PO SCH (09:00)
[2019-11-17] MEDS: VENLAFAXINE HCL 75 MG ER CAPSULE PO SCH (09:00)
[2019-11-17] MEDS: LORazepam 2 MG TABLET PO PRN (12:49)
[2019-11-17 16:25] VITALS: BP 101/62
[2019-11-17] MEDS: QUEtiapine FUMARATE 200 MG TABLET PO SCH (20:27)
[2019-11-17] MEDS: OLANZapine 10 MG TABLET PO SCH (20:27)
[2019-11-18 08:25] VITALS: BP 125/79
[2019-11-18] MEDS: AmLODIPine BESYLATE 5 MG TABLET PO SCH (08:29)
[2019-11-18] MEDS: QUEtiapine FUMARATE 100 MG TABLET PO SCH (08:29)
[2019-11-18] MEDS: VENLAFAXINE HCL 75 MG ER CAPSULE PO SCH (08:29)
[2019-11-18] MEDS: CHLORTHALIDONE 25 MG TABLET PO SCH (08:29)
[2019-11-18 16:22] VITALS: BP 122/71
[2019-11-18] MEDS: LORazepam 2 MG TABLET PO PRN (19:39)
[2019-11-18] MEDS: OLANZapine 10 MG TABLET PO SCH (20:10)
[2019-11-18] MEDS: QUEtiapine FUMARATE 200 MG TABLET PO SCH (20:10)
[2019-11-19] MEDS: CHLORTHALIDONE 25 MG TABLET PO SCH (08:02)
[2019-11-19] MEDS: AmLODIPine BESYLATE 5 MG TABLET PO SCH (08:03)
[2019-11-19] MEDS: VENLAFAXINE HCL 75 MG ER CAPSULE PO SCH (08:03)
[2019-11-19] MEDS: LORazepam 2 MG TABLET PO PRN (08:03)
[2019-11-19] MEDS: QUEtiapine FUMARATE 100 MG TABLET PO SCH (08:03)
[2019-11-19 09:04] VITALS: BP 162/98
[2019-11-19 16:28] VITALS: BP 106/60
[2019-11-19] MEDS: OLANZapine 10 MG TABLET PO SCH (20:02)
[2019-11-19] MEDS: QUEtiapine FUMARATE 200 MG TABLET PO SCH (20:02)
[2019-11-20] MEDS: CHLORTHALIDONE 25 MG TABLET PO SCH (08:01)
[2019-11-20] MEDS: QUEtiapine FUMARATE 100 MG TABLET PO SCH (08:01)
[2019-11-20] MEDS: AmLODIPine BESYLATE 5 MG TABLET PO SCH (08:01)
[2019-11-20] MEDS: VENLAFAXINE HCL 75 MG ER CAPSULE PO SCH (08:02)
[2019-11-20 09:16] VITALS: BP 114/81
[2019-11-20] MEDS: LORazepam 2 MG TABLET PO PRN ×2 (12:16→18:54)
[2019-11-20 17:31] VITALS: BP 130/89
[2019-11-20] MEDS: OLANZapine 10 MG TABLET PO SCH (20:00)
[2019-11-20] MEDS: QUEtiapine FUMARATE 200 MG TABLET PO SCH (20:00)
[2019-11-21] MEDS: CHLORTHALIDONE 25 MG TABLET PO SCH (08:40)
[2019-11-21] MEDS: AmLODIPine BESYLATE 5 MG TABLET PO SCH (08:40)
[2019-11-21] MEDS: VENLAFAXINE HCL 75 MG ER CAPSULE PO SCH (08:40)
[2019-11-21] MEDS: LORazepam 2 MG TABLET PO PRN (08:40)
[2019-11-21] MEDS: QUEtiapine FUMARATE 100 MG TABLET PO SCH (08:40)
[2019-11-21 08:49] VITALS: BP 138/84
== END 2019-11-21 15:30 | disposition home or self-care (01) | DRG 885 ==
LOC: EMS 09:16 → 3EC 11:46
PROVIDERS: ADMIT Psychiatry & Neurology Child & Adolescent Psychiatry; ATTEND Psychiatry & Neurology Child & Adolescent Psychiatry
DX: F25.0 Schizoaffective disorder, bipolar type (principal); R45.851 Suicidal ideations; G25.81 Restless legs syndrome; F17.210 Nicotine dependence, cigarettes, uncomplicated; I10 Essential (primary) hypertension; M19.90 Unspecified osteoarthritis, unspecified site; Z59.0 Homelessness; Z78.1 Physical restraint status; Z79.899 Other long term (current) drug therapy
CPT/HCPCS: 87081; G0480

== ENCOUNTER 2019-11-22 15:50 | Inpatient (IN) | payer MEDICARE, OTHER ==
[~2019-11-22] VITALS: Ht 167.6 cm; Wt 98.4 kg
[~2019-11-22 15:50] MED LIST changes: +DIVA-78 PO
[2019-11-22] MEDS ORDERED: 0.9% SODIUM CHLORIDE 10 ML SYRINGE IVP PRN ×2 (16:00→18:00)
[2019-11-22] MEDS ORDERED: SODIUM CHLORIDE 0.9% 1,000 ML IV ONE ×2 (16:00→16:30)
[2019-11-22] MEDS ORDERED: ACETAMINOPHEN 500 MG TABLET PO ONE (16:00)
[2019-11-22] MEDS ORDERED: VANCOMYCIN HCL 1 GM/D5% WATER 200 ML IV ONE (16:30)
[2019-11-22] MEDS ORDERED: PIPERACILLIN/TAZO 3.375 GM/D5W 50 ML IV ONE (16:30)
[2019-11-22] MEDS ORDERED: AZITHROMYCIN 500 MG/NS 250 ML IV ONE (16:30)
[2019-11-22 17:02] LABS: BASOPHILS % (AUTO) 0.6 % (0.0-2.0); EOSINOPHILS % (AUTO) 0.7 % (1.0-6.0); HEMATOCRIT 43.3 % (41-53); HEMOGLOBIN 14.2 g/dL (13.5-17.5); LYMPHOCYTES # (AUTO) 2.6 K/uL (1.0-4.8); LYMPHOCYTES % (AUTO) 25.1 % (22.0-44.0); MEAN CORPUSCULAR HEMOGLOBIN 30.3 pg (26.0-34.0); MEAN CORPUSCULAR HGB CONC 32.8 G/dL (31.0-37.0); MEAN CORPUSCULAR VOLUME 92 fL (80-100); MONOCYTES # (AUTO) 0.8 K/uL (0.1-1.0); MONOCYTES % (AUTO) 7.6 % (2.0-9.0); NEUTROPHILS # (AUTO) 6.9 K/uL (1.8-7.7); PLATELET COUNT (AUTO) 278 K/uL (150-450); RED CELL DISTRIBUTION WIDTH 13.8 % (11.5-14.5)
[2019-11-22 17:31] LABS: D-DIMER 0.3 mg/L FEU (0.00-0.50); PROTHROMBIN TIME 10.1 SEC (9.4-11.6)
[2019-11-22 17:31] LABS: INFLUENZA TYPE A NEGATIVE FOR TYPE A (NEGATIVE); INFLUENZA TYPE B NEGATIVE FOR TYPE B (NEGATIVE)
[2019-11-22 17:36] LABS: ALANINE AMINOTRANSFERASE 38 U/L (12-78); ALKALINE PHOSPHATASE 101 U/L (46-116); ANION GAP 8 mmol/L (8-16); ASPARTATE AMINOTRANSFERASE 16 U/L (15-37); B-TYPE NATRIURETIC PEPTIDE 9 pg/mL (0-100); BILIRUBIN,TOTAL 0.3 mg/dL (0.1-1.0); C-REACTIVE PROTEIN QUANT 0.47 mg/dL (0.00-0.30); CALCIUM, TOTAL 9.2 mg/dL (8.8-10.5); CARBON DIOXIDE 32 mmol/L (22-29); CHLORIDE 100 mmol/L (98-107); CREATINE KINASE, TOTAL ONLY 99 U/L (39-308); CREATININE 0.82 mg/dL (0.60-1.30); GLOMERULAR FILTR. RATE CALC > 60 mL/min (>60); GLUCOSE,RANDOM 156 mg/dL (70-110); LACTATE DEHYDROGENASE 140 U/L (85-227); SODIUM SERUM 140 mmol/L (136-145); TOTAL PROTEIN, SERUM 7.7 g/dL (6.4-8.2); UREA NITROGEN, BLOOD 26 mg/dL (7-18)
[2019-11-22 17:39] LABS: LACTIC ACID 2.3 mmol/L (0.4-2.0); POTASSIUM 2.6 mmol/L (3.5-5.1)
[2019-11-22] MEDS: POTASSIUM CHL 10 MEQ/WATER 50 ML IV SCH ×2 (17:45→18:45)
[2019-11-22] MEDS ORDERED: POTASSIUM CHLORIDE 20 MEQ ER TABLET PO ONE (17:45)
[2019-11-22] MEDS ORDERED: ACETAMINOPHEN 325 MG TABLET PO PRN ×2 (18:00→22:15)
[2019-11-22 20:15] VITALS: BP 144/88
[2019-11-22] MEDS ORDERED: MORPHINE SULFATE 2 MG/ML SYRINGE IVP PRN (22:15)
[2019-11-22] MEDS ORDERED: BISACODYL 10 MG RECTAL RECTAL SUPPOSITORY PR PRN (22:15)
[2019-11-22] MEDS ORDERED: ONDANSETRON HCL 4 MG/2 ML VIAL IVP PRN (22:15)
[2019-11-22] MEDS ORDERED: POTASSIUM CHL 10 MEQ/WATER 50 ML IV PRN (22:15)
[2019-11-22] MEDS ORDERED: MAGNESIUM HYDROXIDE SUSPENSION 30 ML UDCUP PO PRN (22:15)
[2019-11-22] MEDS ORDERED: HYDROCODONE/ACETAMINOPHEN 5-325 MG TABLET PO PRN (22:15)
[2019-11-22] MEDS ORDERED: ZOLPIDEM TARTRATE 5 MG TABLET PO PRN (22:15)
[2019-11-22] MEDS ORDERED: OLANZapine 10 MG TABLET PO SCH (22:21)
[2019-11-22] MEDS: HEPARIN SODIUM,PORCINE 5,000 UNITS/ML VIAL SQ SCH (23:00)
[2019-11-22 23:19] LABS: D-DIMER 0.25 mg/L FEU (0.00-0.50)
[2019-11-22 23:24] VITALS: BP 117/64
[2019-11-22 23:37] LABS: C-REACTIVE PROTEIN QUANT 0.38 mg/dL (0.00-0.30)
[2019-11-22 23:40] LABS: POTASSIUM 2.9 mmol/L (3.5-5.1)
[2019-11-22 23:52] LABS: ABG A-A DIFF O2 28.8 mmHg (10-20.0); ABG BASE EXCESS 7.2 mmol/L (-2.0-3.0); ABG CARBOXYHEMOGLOBIN 0.3 % (0.0-1.5); ABG HCO3 30.3 mmol/L (22.0-26.0); ABG METHEMOGLOBIN 0.3 % (0.0-1.5); ABG OXYGEN CONTENT 19.7 mL/dL (15.0-23.0); ABG OXYGEN SATURATION 94.9 % (95.0-98.0); ABG OXYHEMOGLOBIN 94.3 % (94.0-100.0); ABG PCO2 43 mmHg (35-45); ABG PH 7.472 (7.35-7.450); ABG TOTAL HEMOGLOBIN 14.9 G/dL (12.0-18.0); O2 DEVICE,BLOOD GAS ROOM AIR (ROOM AIR); PO2, ARTERIAL BG 69.2 mmHg (84.0-92.0); SITE, BLOOD GAS LFT RADIAL; SOURCE, BLOOD GAS ARTERIAL; TEMPERATURE, FAHRENHEIT, BG 98.6 FAHREN (96.0-98.6)
[2019-11-23] MEDS: POTASSIUM CHLORIDE 20 MEQ ER TABLET PO PRN ×2 (00:13→15:25)
[2019-11-23] MEDS ORDERED: PNEUMOCOCCAL VACCINE POLYVALENT 0.5 ML VIAL [PPSV23] IM ONE (02:45)
[2019-11-23 06:54] VITALS: BP 106/60
[2019-11-23 07:35] VITALS: BP 133/74
[2019-11-23] MEDS ORDERED: DOCUSATE SODIUM 100 MG CAPSULE PO SCH (09:00)
[2019-11-23] MEDS ORDERED: QUEtiapine FUMARATE 100 MG TABLET PO SCH (09:00)
[2019-11-23] MEDS ORDERED: VENLAFAXINE HCL 75 MG ER CAPSULE PO SCH (09:00)
[2019-11-23] MEDS ORDERED: PANTOPRAZOLE SODIUM 40 MG DR TABLET PO SCH (09:00)
[2019-11-23] MEDS ORDERED: AmLODIPine BESYLATE 5 MG TABLET PO SCH (09:00)
[2019-11-23] MEDS ORDERED: CHLORTHALIDONE 25 MG TABLET PO SCH (09:00)
[2019-11-23] MEDS: HEPARIN SODIUM,PORCINE 5,000 UNITS/ML VIAL SQ SCH ×2 (09:16→15:25)
[2019-11-23] MEDS ORDERED: LORazepam 2 MG/ML VIAL IVP PRN (10:45)
[2019-11-23] MEDS ORDERED: LORazepam 2 MG/ML VIAL IM PRN (10:45)
[2019-11-23] MEDS ORDERED: LORazepam 2 MG/ML VIAL ONE (10:47)
[2019-11-23 10:59] LABS: BASOPHILS % (AUTO) 0.8 % (0.0-2.0); EOSINOPHILS % (AUTO) 1.7 % (1.0-6.0); HEMATOCRIT 42.2 % (41-53); HEMOGLOBIN 14.1 g/dL (13.5-17.5); LYMPHOCYTES # (AUTO) 2.6 K/uL (1.0-4.8); LYMPHOCYTES % (AUTO) 35.6 % (22.0-44.0); MEAN CORPUSCULAR HEMOGLOBIN 30.9 pg (26.0-34.0); MEAN CORPUSCULAR HGB CONC 33.4 G/dL (31.0-37.0); MEAN CORPUSCULAR VOLUME 92 fL (80-100); MONOCYTES # (AUTO) 0.6 K/uL (0.1-1.0); MONOCYTES % (AUTO) 8.2 % (2.0-9.0); NEUTROPHILS % (AUTO) 53.7 % (40.0-70.0); PLATELET COUNT (AUTO) 253 K/uL (150-450); RED BLOOD CELL COUNT(AUTO) 4.57 MIL/uL (4.50-5.90); RED CELL DISTRIBUTION WIDTH 14.1 % (11.5-14.5)
[2019-11-23 11:07] LABS: ANION GAP 8 mmol/L (8-16); CALCIUM, TOTAL 8.8 mg/dL (8.8-10.5); CARBON DIOXIDE 30 mmol/L (22-29); CHLORIDE 98 mmol/L (98-107); GLOMERULAR FILTR. RATE CALC > 60 mL/min (>60); GLUCOSE,RANDOM 129 mg/dL (70-110); POTASSIUM 3.2 mmol/L (3.5-5.1); SODIUM SERUM 136 mmol/L (136-145); UREA NITROGEN, BLOOD 22 mg/dL (7-18)
[2019-11-23] MEDS ORDERED: QUEtiapine FUMARATE 200 MG TABLET PO SCH (21:00)
[2019-11-24] MEDS ORDERED: VENL-67 PO (15:14)
== END 2019-11-23 17:40 | disposition left against medical advice (07) | DRG 872 ==
LOC: EMS 15:53 → 5N 18:14
PROVIDERS: ADMIT Internal Medicine; ATTEND Internal Medicine
DX: A41.9 Sepsis, unspecified organism (principal); E87.2 Acidosis; I10 Essential (primary) hypertension; F20.9 Schizophrenia, unspecified; E87.6 Hypokalemia; Z53.29 Procedure and treatment not carried out because of patient's decision for other reasons; Z03.818 Encounter for observation for suspected exposure to other biological agents ruled out
CPT/HCPCS: 36600; 71250; 72192; 74150; 82728; 82805; 83605; 83615; 84132; 84145; 85379; 85384; 86140; 87040; 87635; 87804; 93005; J1644; J2060; J3370; J7030

== ENCOUNTER 2019-11-23 17:57 | Inpatient (IN) | payer MEDICARE, OTHER ==
[~2019-11-23] VITALS: Ht 172.7 cm; Wt 98.7 kg
[~2019-11-23 17:57] MED LIST changes: -DIVA-78 PO; -ROPI0.257 PO
[2019-11-23] MEDS ORDERED: 0.9% SODIUM CHLORIDE 10 ML SYRINGE IVP PRN ×2 (18:30→22:00)
[2019-11-23] MEDS ORDERED: SODIUM CHLORIDE 0.9% 1,000 ML IV ONE (18:45)
[2019-11-23] MEDS ORDERED: ACETAMINOPHEN 500 MG TABLET PO ONE (18:45)
[2019-11-23 19:06] LABS: BASOPHILS % (AUTO) 0.4 % (0.0-2.0); EOSINOPHILS % (AUTO) 0.5 % (1.0-6.0); HEMOGLOBIN 15.1 g/dL (13.5-17.5); LYMPHOCYTES % (AUTO) 22.7 % (22.0-44.0); MEAN CORPUSCULAR HEMOGLOBIN 30.3 pg (26.0-34.0); MEAN CORPUSCULAR HGB CONC 32.9 G/dL (31.0-37.0); MEAN CORPUSCULAR VOLUME 92 fL (80-100); MONOCYTES # (AUTO) 0.9 K/uL (0.1-1.0); MONOCYTES % (AUTO) 6.7 % (2.0-9.0); NEUTROPHILS # (AUTO) 9.2 K/uL (1.8-7.7); NEUTROPHILS % (AUTO) 69.7 % (40.0-70.0); PLATELET COUNT (AUTO) 315 K/uL (150-450); RED BLOOD CELL COUNT(AUTO) 4.99 MIL/uL (4.50-5.90); RED CELL DISTRIBUTION WIDTH 14.2 % (11.5-14.5)
[2019-11-23] MEDS ORDERED: VANCOMYCIN HCL 1 GM/D5% WATER 200 ML IV ONE (19:15)
[2019-11-23] MEDS ORDERED: PIPERACILLIN/TAZO 3.375 GM/D5W 50 ML IV ONE (19:15)
[2019-11-23] MEDS ORDERED: AZITHROMYCIN 500 MG/NS 250 ML IV ONE (19:15)
[2019-11-23 19:20] LABS: PROTHROMBIN TIME 10.2 SEC (9.4-11.6)
[2019-11-23 19:32] LABS: ANION GAP 15 mmol/L (8-16); CALCIUM, TOTAL 9.5 mg/dL (8.8-10.5); CARBON DIOXIDE 24 mmol/L (22-29); CHLORIDE 96 mmol/L (98-107); CREATININE 0.78 mg/dL (0.60-1.30); GLOMERULAR FILTR. RATE CALC > 60 mL/min (>60); GLUCOSE,RANDOM 136 mg/dL (70-110); POTASSIUM 3.6 mmol/L (3.5-5.1); SODIUM SERUM 135 mmol/L (136-145); UREA NITROGEN, BLOOD 22 mg/dL (7-18)
[2019-11-23] MEDS ORDERED: LORazepam 2 MG/ML VIAL IVP ONE (19:45)
[2019-11-23 19:57] LABS: ALANINE AMINOTRANSFERASE 43 U/L (12-78); ALBUMIN 4.4 g/dL (3.4-5.0); ALKALINE PHOSPHATASE 86 U/L (46-116); ASPARTATE AMINOTRANSFERASE 30 U/L (15-37); BILIRUBIN,TOTAL 0.4 mg/dL (0.1-1.0); CREATINE KINASE, TOTAL ONLY 251 U/L (39-308); TOTAL PROTEIN, SERUM 8.6 g/dL (6.4-8.2)
[2019-11-23 20:06] LABS: B-TYPE NATRIURETIC PEPTIDE 9 pg/mL (0-100)
[2019-11-23 20:08] LABS: LACTIC ACID 2.6 mmol/L (0.4-2.0)
[2019-11-23] MEDS ORDERED: ACETAMINOPHEN 325 MG TABLET PO PRN ×2 (22:00→23:45)
[2019-11-23 22:25] VITALS: BP 121/89
[2019-11-23] MEDS ORDERED: BISACODYL 10 MG RECTAL RECTAL SUPPOSITORY PR PRN (23:45)
[2019-11-23] MEDS ORDERED: MAGNESIUM HYDROXIDE SUSPENSION 30 ML UDCUP PO PRN (23:45)
[2019-11-23] MEDS ORDERED: MORPHINE SULFATE 2 MG/ML SYRINGE IVP PRN (23:45)
[2019-11-23] MEDS ORDERED: IPRATROPIUM BROMIDE 0.5 MG/2.5 ML NEB SOLUTION NEB PRN (23:45)
[2019-11-23] MEDS ORDERED: ONDANSETRON HCL 4 MG/2 ML VIAL IVP PRN (23:45)
[2019-11-23] MEDS ORDERED: ALBUTEROL SULFATE 2.5 MG/0.5 ML NEB SOLUTION NEB PRN (23:45)
[2019-11-23 23:54] VITALS: BP 132/65
[2019-11-24] MEDS: ZOLPIDEM TARTRATE 5 MG TABLET PO PRN ×2 (00:10→21:15)
[2019-11-24] MEDS: HEPARIN SODIUM,PORCINE 5,000 UNITS/ML VIAL SQ SCH ×4 (00:10→23:27)
[2019-11-24 02:17] LABS: APPEARANCE,URINE CLEAR (CLEAR); BILIRUBIN,URINE NEGATIVE (NEGATIVE); GLUCOSE, URINE (UA) NEGATIVE (NEGATIVE); KETONES,URINE NEGATIVE (NEGATIVE); LEUKOCYTE ESTERASE ,URINE NEGATIVE (NEGATIVE); NITRATE,URINE NEGATIVE (NEGATIVE); OCCULT BLOOD,URINE NEGATIVE (NEGATIVE); PH,URINE 6.5 (5.0-8.0); PROTEIN,URINE NEGATIVE (NEGATIVE); UROBILINOGEN,URINE 0.2 mg/dL (<=1.0)
[2019-11-24 05:21] LABS: ALANINE AMINOTRANSFERASE 34 U/L (12-78); ALBUMIN 3.6 g/dL (3.4-5.0); ANION GAP 9 mmol/L (8-16); BILIRUBIN,TOTAL 0.3 mg/dL (0.1-1.0); GLUCOSE,RANDOM 120 mg/dL (70-110); TOTAL PROTEIN, SERUM 6.8 g/dL (6.4-8.2); UREA NITROGEN, BLOOD 21 mg/dL (7-18)
[2019-11-24 05:35] LABS: ALKALINE PHOSPHATASE 78 U/L (46-116); ASPARTATE AMINOTRANSFERASE 22 U/L (15-37); CALCIUM, TOTAL 8.1 mg/dL (8.8-10.5); CARBON DIOXIDE 27 mmol/L (22-29); CHLORIDE 100 mmol/L (98-107); CREATINE KINASE, TOTAL ONLY 169 U/L (39-308); CREATININE 0.66 mg/dL (0.60-1.30); GLOMERULAR FILTR. RATE CALC > 60 mL/min (>60); SODIUM SERUM 136 mmol/L (136-145)
[2019-11-24 05:50] LABS: POTASSIUM 2.9 mmol/L (3.5-5.1)
[2019-11-24] MEDS ORDERED: POTASSIUM CHL 10 MEQ/WATER 50 ML IV PRN (06:15)
[2019-11-24 06:22] LABS: BASOPHILS % (AUTO) 0.5 % (0.0-2.0); EOSINOPHILS % (AUTO) 2.5 % (1.0-6.0); HEMATOCRIT 39.2 % (41-53); HEMOGLOBIN 12.9 g/dL (13.5-17.5); LYMPHOCYTES # (AUTO) 3.5 K/uL (1.0-4.8); LYMPHOCYTES % (AUTO) 38.3 % (22.0-44.0); MEAN CORPUSCULAR HEMOGLOBIN 30.8 pg (26.0-34.0); MEAN CORPUSCULAR VOLUME 93 fL (80-100); MONOCYTES # (AUTO) 0.7 K/uL (0.1-1.0); MONOCYTES % (AUTO) 7.8 % (2.0-9.0); NEUTROPHILS # (AUTO) 4.6 K/uL (1.8-7.7); NEUTROPHILS % (AUTO) 50.9 % (40.0-70.0); PLATELET COUNT (AUTO) 246 K/uL (150-450); RED BLOOD CELL COUNT(AUTO) 4.19 MIL/uL (4.50-5.90)
[2019-11-24 06:50] VITALS: BP 128/72
[2019-11-24 08:02] VITALS: BP 110/65
[2019-11-24] MEDS: DOCUSATE SODIUM 100 MG CAPSULE PO SCH ×2 (09:00→20:07)
[2019-11-24] MEDS ORDERED: POTASSIUM CHLORIDE 20 MEQ ER TABLET PO ONE (10:30)
[2019-11-24 10:45] VITALS: BP 124/74
[2019-11-24] MEDS ORDERED: VANCOMYCIN HCL 1 GM/D5% WATER 200 ML IV SCH (10:45)
[2019-11-24] MEDS: LORazepam 2 MG/ML VIAL IVP PRN ×2 (10:46→18:01)
[2019-11-24] MEDS: PIPERACILLIN/TAZO 3.375 GM/D5W 50 ML IV SCH ×3 (11:00→23:27)
[2019-11-24] MEDS ORDERED: VANCOMYCIN HCL 1.25 GM in DEXTROSE 5%-WATER 250 ML IV ONE (11:00)
[2019-11-24 11:22] VITALS: BP 106/50
[2019-11-24] MEDS: HYDROCODONE/ACETAMINOPHEN 5-325 MG TABLET PO PRN ×2 (14:13→23:28)
[2019-11-24 14:55] VITALS: BP 120/79
[2019-11-24] MEDS ORDERED: VENL-67 PO (15:14)
[2019-11-24] MEDS ORDERED: OLANZapine 5 MG RAPDIS TABLET PO PRN (15:15)
[2019-11-24] MEDS ORDERED: SODIUM CHLORIDE 0.9% 500 ML IV ONE (16:49)
[2019-11-24] MEDS: POTASSIUM CHLORIDE 20 MEQ ER TABLET PO PRN (17:48)
[2019-11-24] MEDS: VANCOMYCIN HCL 1.25 GM in DEXTROSE 5%-WATER 250 ML IV SCH (17:48)
[2019-11-24] MEDS ORDERED: OLANZapine 5 MG RAPDIS TABLET PO SCH (21:00)
[2019-11-24 21:34] VITALS: BP 133/75
[2019-11-25 00:41] VITALS: BP 124/86
[2019-11-25] MEDS: VANCOMYCIN HCL 1.25 GM in DEXTROSE 5%-WATER 250 ML IV SCH ×2 (00:51→08:26)
[2019-11-25] MEDS: PIPERACILLIN/TAZO 3.375 GM/D5W 50 ML IV SCH ×2 (05:11→11:44)
[2019-11-25] MEDS: HEPARIN SODIUM,PORCINE 5,000 UNITS/ML VIAL SQ SCH (08:00)
[2019-11-25 08:17] VITALS: BP 108/69
[2019-11-25] MEDS: DOCUSATE SODIUM 100 MG CAPSULE PO SCH (08:27)
[2019-11-25] MEDS: POTASSIUM CHLORIDE 20 MEQ ER TABLET PO PRN (08:42)
[2019-11-25] MEDS ORDERED: FLUoxetine HCL 20 MG CAPSULE PO SCH (09:00)
[2019-11-25] MEDS ORDERED: OLAN7.5T2 PO (12:35)
[2019-11-25] MEDS ORDERED: FLUO-191 PO (12:35)
[2019-11-25] MEDS ORDERED: LEVO750T68 PO (13:00)
== END 2019-11-25 13:55 | disposition home or self-care (01) | DRG 871 ==
LOC: EMS 18:00 → 5N 21:00 → 5S 11-24 10:00
PROVIDERS: ADMIT Hospitalist; ATTEND Hospitalist
DX: A41.9 Sepsis, unspecified organism (principal); J18.9 Pneumonia, unspecified organism; E87.2 Acidosis; E87.6 Hypokalemia; I10 Essential (primary) hypertension; F20.9 Schizophrenia, unspecified; M16.12 Unilateral primary osteoarthritis, left hip; E78.5 Hyperlipidemia, unspecified; Z03.818 Encounter for observation for suspected exposure to other biological agents ruled out
CPT/HCPCS: 83605; 84132; 87040; 87081; 93005; J0456; J1644; J2060; J2543; J3370; J7030; J7040; J7060

== ENCOUNTER 2019-11-26 07:59 | Inpatient (IN) | payer MEDICARE, MEDICAID ==
[~2019-11-26] VITALS: Ht 170.2 cm; Wt 105.0 kg
[~2019-11-26 07:59] MED LIST changes: -CHL25 PO; +FLUO-191 PO; +LEVO750T68 PO; -OLAN10TA3 PO; +OLAN7.5T2 PO; -QUET100T PO; -QUET200T PO; -VENL75CA55 PO
[2019-11-26] MEDS ORDERED: LORazepam 2 MG TABLET PO ONE (08:30)
[2019-11-26] MEDS ORDERED: HALOPERIDOL 5 MG TABLET PO ONE (08:30)
[2019-11-26 08:52] LABS: BASOPHILS % (AUTO) 0.6 % (0.0-2.0); EOSINOPHILS % (AUTO) 0.9 % (1.0-6.0); HEMATOCRIT 42.5 % (41-53); HEMOGLOBIN 13.9 g/dL (13.5-17.5); LYMPHOCYTES # (AUTO) 2.8 K/uL (1.0-4.8); LYMPHOCYTES % (AUTO) 30.1 % (22.0-44.0); MEAN CORPUSCULAR HEMOGLOBIN 30.2 pg (26.0-34.0); MEAN CORPUSCULAR HGB CONC 32.7 G/dL (31.0-37.0); MEAN CORPUSCULAR VOLUME 92 fL (80-100); MONOCYTES # (AUTO) 0.8 K/uL (0.1-1.0); NEUTROPHILS # (AUTO) 5.6 K/uL (1.8-7.7); NEUTROPHILS % (AUTO) 59.4 % (40.0-70.0); PLATELET COUNT (AUTO) 293 K/uL (150-450); RED BLOOD CELL COUNT(AUTO) 4.61 MIL/uL (4.50-5.90); RED CELL DISTRIBUTION WIDTH 13.9 % (11.5-14.5)
[2019-11-26 08:58] LABS: ANION GAP 13 mmol/L (8-16); CALCIUM, TOTAL 9.3 mg/dL (8.8-10.5); CARBON DIOXIDE 27 mmol/L (22-29); CHLORIDE 102 mmol/L (98-107); CREATININE 0.96 mg/dL (0.60-1.30); GLOMERULAR FILTR. RATE CALC > 60 mL/min (>60); GLUCOSE,RANDOM 143 mg/dL (70-110); POTASSIUM 3.3 mmol/L (3.5-5.1); SODIUM SERUM 142 mmol/L (136-145); UREA NITROGEN, BLOOD 25 mg/dL (7-18)
[2019-11-26 09:04] LABS: ALANINE AMINOTRANSFERASE 53 U/L (12-78); ALBUMIN 4.4 g/dL (3.4-5.0); ALKALINE PHOSPHATASE 83 U/L (46-116); ASPARTATE AMINOTRANSFERASE 37 U/L (15-37); BILIRUBIN,TOTAL 0.6 mg/dL (0.1-1.0)
[2019-11-26] MEDS ORDERED: HALOPERIDOL LACTATE 5 MG/ML VIAL IM ONE (09:30)
[2019-11-26] MEDS ORDERED: LORazepam 2 MG/ML VIAL IM ONE (09:30)
[2019-11-26] MEDS ORDERED: DiphenhydrAMINE HCL 50 MG/ML VIAL IM ONE (09:30)
[2019-11-26] MEDS ORDERED: PROMETHAZINE HCL 25 MG TABLET PO PRN (10:45)
[2019-11-26] MEDS ORDERED: TUBERCULIN, PURIFIED PROTEIN DERIVATIVE 5 TU/0.1 ML SYRINGE ID ONE (10:45)
[2019-11-26] MEDS ORDERED: HydrOXYzine PAMOATE 50 MG CAPSULE PO PRN (10:45)
[2019-11-26] MEDS ORDERED: GuaiFENesin/D-METHORPHAN [SUGAR-FREE] 200-20MG/10 ML SYRUP UDCUP PO PRN (10:45)
[2019-11-26] MEDS ORDERED: PNEUMOCOCCAL VACCINE POLYVALENT 0.5 ML VIAL [PPSV23] IM ONE (14:30)
[2019-11-26] MEDS: LORazepam 1 MG TABLET PO PRN ×3 (14:54→20:13)
[2019-11-26] MEDS: AmLODIPine BESYLATE 2.5 MG TABLET PO SCH (16:59)
[2019-11-26] MEDS: THIAMINE 100 MG TABLET PO SCH (16:59)
[2019-11-26 18:41] VITALS: BP 138/78
[2019-11-26] MEDS: ZOLPIDEM TARTRATE 10 MG TABLET PO PRN (20:47)
[2019-11-26] MEDS ORDERED: OLANZapine 5 MG RAPDIS TABLET PO SCH (21:00)
[2019-11-26] MEDS ORDERED: POTASSIUM CHLORIDE 20 MEQ ER TABLET PO ONE (21:45)
[2019-11-26] MEDS ORDERED: ACETAMINOPHEN 325 MG TABLET PO PRN (21:45)
[2019-11-26 21:59] VITALS: BP 112/68
[2019-11-26] MEDS: IBUPROFEN 600 MG TABLET PO PRN (21:59)
[2019-11-27] MEDS: AmLODIPine BESYLATE 2.5 MG TABLET PO SCH (09:22)
[2019-11-27] MEDS: LEVOFLOXACIN 500 MG TABLET PO SCH (09:22)
[2019-11-27] MEDS: FOLIC ACID 1 MG TABLET PO SCH (09:22)
[2019-11-27] MEDS: FLUoxetine HCL 20 MG CAPSULE PO SCH (09:23)
[2019-11-27] MEDS: MULTIVITAMINS WITH MINERALS, THERAPEUTIC TABLET PO SCH (09:23)
[2019-11-27] MEDS: NALTREXONE HCL 50 MG TABLET PO SCH (09:23)
[2019-11-27] MEDS: THIAMINE 100 MG TABLET PO SCH ×2 (09:23→16:30)
[2019-11-27 10:00] VITALS: BP 132/82
[2019-11-27] MEDS: LORazepam 1 MG TABLET PO PRN ×4 (10:36→21:39)
[2019-11-27 16:21] VITALS: BP 137/69
[2019-11-27] MEDS: ZOLPIDEM TARTRATE 10 MG TABLET PO PRN (20:43)
[2019-11-27] MEDS: OLANZapine 10 MG RAPDIS TABLET PO SCH (20:44)
[2019-11-27 21:58] VITALS: BP 115/62
[2019-11-27] MEDS: IBUPROFEN 600 MG TABLET PO PRN (22:04)
[2019-11-28] MEDS: OLANZapine 5 MG RAPDIS TABLET PO PRN (01:24)
[2019-11-28 02:07] VITALS: BP 118/69
[2019-11-28] MEDS ORDERED: POTASSIUM CHLORIDE 20 MEQ ER TABLET PO ONE (08:15)
[2019-11-28] MEDS: MULTIVITAMINS WITH MINERALS, THERAPEUTIC TABLET PO SCH (09:09)
[2019-11-28] MEDS: THIAMINE 100 MG TABLET PO SCH ×2 (09:10→16:21)
[2019-11-28] MEDS: FLUoxetine HCL 20 MG CAPSULE PO SCH (09:10)
[2019-11-28] MEDS: FOLIC ACID 1 MG TABLET PO SCH (09:10)
[2019-11-28] MEDS: LEVOFLOXACIN 500 MG TABLET PO SCH (09:10)
[2019-11-28] MEDS: NALTREXONE HCL 50 MG TABLET PO SCH (09:10)
[2019-11-28] MEDS: AmLODIPine BESYLATE 2.5 MG TABLET PO SCH (09:18)
[2019-11-28 09:31] VITALS: BP 114/72
[2019-11-28] MEDS: LORazepam 1 MG TABLET PO PRN ×2 (13:40→17:03)
[2019-11-28 16:22] VITALS: BP 123/68
[2019-11-28] MEDS: OLANZapine 10 MG RAPDIS TABLET PO SCH (20:29)
[2019-11-28] MEDS: ZOLPIDEM TARTRATE 10 MG TABLET PO PRN (21:05)
[2019-11-29] MEDS: LORazepam 1 MG TABLET PO PRN ×5 (00:04→19:32)
[2019-11-29 00:40] VITALS: BP 123/77
[2019-11-29 08:30] VITALS: BP 124/83
[2019-11-29] MEDS: NALTREXONE HCL 50 MG TABLET PO SCH (08:40)
[2019-11-29] MEDS: AmLODIPine BESYLATE 2.5 MG TABLET PO SCH (08:40)
[2019-11-29] MEDS: THIAMINE 100 MG TABLET PO SCH ×2 (08:40→16:27)
[2019-11-29] MEDS: FOLIC ACID 1 MG TABLET PO SCH (08:40)
[2019-11-29] MEDS: FLUoxetine HCL 20 MG CAPSULE PO SCH (08:40)
[2019-11-29] MEDS: MULTIVITAMINS WITH MINERALS, THERAPEUTIC TABLET PO SCH (08:40)
[2019-11-29] MEDS: LEVOFLOXACIN 500 MG TABLET PO SCH (08:41)
[2019-11-29 08:53] LABS: ANION GAP 12 mmol/L (8-16); CARBON DIOXIDE 24 mmol/L (22-29); CHLORIDE 105 mmol/L (98-107); CREATININE 0.63 mg/dL (0.60-1.30); GLUCOSE,RANDOM 109 mg/dL (70-110); SODIUM SERUM 141 mmol/L (136-145); UREA NITROGEN, BLOOD 20 mg/dL (7-18)
[2019-11-29 08:54] LABS: CALCIUM, TOTAL 8.9 mg/dL (8.8-10.5); CHOL/HDL RATIO 5.5 (4.2-7.3); CHOLESTEROL 204 mg/dL (131-200); FREE T4 (FREE THYROXINE) 0.83 ng/dL (0.76-1.46); GLOMERULAR FILTR. RATE CALC > 60 mL/min (>60); HDL CHOLESTEROL 37 mg/dL (40-60); LDL CHOL (CALC.) 140 mg/dL (0-130); THYROID STIMULATING HORMONE 0.87 uIU/mL (0.36-3.74); TRIGLYCERIDES 134 mg/dL (15-150)
[2019-11-29 08:59] LABS: HEMOGLOBIN A1C 6.1 % (3.8-5.6)
[2019-11-29 16:00] VITALS: BP 134/76
[2019-11-29] MEDS: IBUPROFEN 600 MG TABLET PO PRN (16:43)
[2019-11-29] MEDS: OLANZapine 10 MG RAPDIS TABLET PO SCH (20:29)
[2019-11-30 00:16] VITALS: BP 117/68
[2019-11-30] MEDS: ZOLPIDEM TARTRATE 10 MG TABLET PO PRN ×2 (00:25→21:01)
[2019-11-30 01:55] VITALS: BP 131/68
[2019-11-30] MEDS: LORazepam 1 MG TABLET PO PRN ×3 (01:56→21:29)
[2019-11-30] MEDS: OLANZapine 5 MG RAPDIS TABLET PO PRN (03:58)
[2019-11-30 08:00] VITALS: BP 135/62
[2019-11-30] MEDS: FOLIC ACID 1 MG TABLET PO SCH (08:11)
[2019-11-30] MEDS: MULTIVITAMINS WITH MINERALS, THERAPEUTIC TABLET PO SCH (08:11)
[2019-11-30] MEDS: FLUoxetine HCL 20 MG CAPSULE PO SCH (08:11)
[2019-11-30] MEDS: NALTREXONE HCL 50 MG TABLET PO SCH (08:11)
[2019-11-30] MEDS: THIAMINE 100 MG TABLET PO SCH ×2 (08:11→16:32)
[2019-11-30] MEDS: LEVOFLOXACIN 500 MG TABLET PO SCH (08:11)
[2019-11-30] MEDS: AmLODIPine BESYLATE 2.5 MG TABLET PO SCH (08:11)
[2019-11-30 16:02] VITALS: BP 132/66
[2019-11-30] MEDS: OLANZapine 10 MG RAPDIS TABLET PO SCH (20:28)
[2019-12-01] MEDS: LORazepam 1 MG TABLET PO PRN ×4 (00:30→17:55)
[2019-12-01 00:33] VITALS: BP 126/80
[2019-12-01] MEDS: FOLIC ACID 1 MG TABLET PO SCH (08:37)
[2019-12-01] MEDS: LEVOFLOXACIN 500 MG TABLET PO SCH (08:37)
[2019-12-01] MEDS: FLUoxetine HCL 20 MG CAPSULE PO SCH (08:37)
[2019-12-01] MEDS: AmLODIPine BESYLATE 2.5 MG TABLET PO SCH (08:38)
[2019-12-01] MEDS: THIAMINE 100 MG TABLET PO SCH ×2 (08:38→17:55)
[2019-12-01] MEDS: NALTREXONE HCL 50 MG TABLET PO SCH (08:38)
[2019-12-01] MEDS: MULTIVITAMINS WITH MINERALS, THERAPEUTIC TABLET PO SCH (08:38)
[2019-12-01] MEDS: IBUPROFEN 600 MG TABLET PO PRN (14:30)
[2019-12-01 14:44] VITALS: BP 127/78
[2019-12-01 16:01] VITALS: BP 139/83
[2019-12-01] MEDS: OLANZapine 5 MG RAPDIS TABLET PO PRN (17:55)
[2019-12-01] MEDS: ZOLPIDEM TARTRATE 10 MG TABLET PO PRN (20:47)
[2019-12-01] MEDS: OLANZapine 10 MG RAPDIS TABLET PO SCH (20:47)
[2019-12-02] MEDS: MULTIVITAMINS WITH MINERALS, THERAPEUTIC TABLET PO SCH (08:46)
[2019-12-02] MEDS: THIAMINE 100 MG TABLET PO SCH ×2 (08:46→16:28)
[2019-12-02] MEDS: NALTREXONE HCL 50 MG TABLET PO SCH (08:47)
[2019-12-02] MEDS: FLUoxetine HCL 20 MG CAPSULE PO SCH (08:47)
[2019-12-02] MEDS: FOLIC ACID 1 MG TABLET PO SCH (08:47)
[2019-12-02] MEDS: AmLODIPine BESYLATE 2.5 MG TABLET PO SCH (09:04)
[2019-12-02 16:49] VITALS: BP 144/74
[2019-12-02] MEDS: OLANZapine 10 MG RAPDIS TABLET PO SCH (20:27)
[2019-12-02] MEDS: LORazepam 1 MG TABLET PO PRN (20:27)
[2019-12-02] MEDS: ZOLPIDEM TARTRATE 10 MG TABLET PO PRN (21:10)
[2019-12-03 00:24] VITALS: BP 133/80
[2019-12-03] MEDS: IBUPROFEN 600 MG TABLET PO PRN (00:38)
[2019-12-03] MEDS: LORazepam 1 MG TABLET PO PRN (01:24)
[2019-12-03] MEDS: AmLODIPine BESYLATE 2.5 MG TABLET PO SCH (08:17)
[2019-12-03] MEDS: NALTREXONE HCL 50 MG TABLET PO SCH (08:17)
[2019-12-03] MEDS: MULTIVITAMINS WITH MINERALS, THERAPEUTIC TABLET PO SCH (08:17)
[2019-12-03] MEDS: THIAMINE 100 MG TABLET PO SCH ×2 (08:18→16:21)
[2019-12-03] MEDS: FLUoxetine HCL 20 MG CAPSULE PO SCH (08:18)
[2019-12-03] MEDS: FOLIC ACID 1 MG TABLET PO SCH (08:36)
[2019-12-03] MEDS ORDERED: MODAFINIL 100 MG TABLET PO SCH (09:00)
[2019-12-03] MEDS: OLANZapine 10 MG RAPDIS TABLET PO SCH (20:45)
[2019-12-03] MEDS: ZOLPIDEM TARTRATE 10 MG TABLET PO PRN (20:46)
[2019-12-04] MEDS: LORazepam 1 MG TABLET PO PRN ×2 (00:12→20:57)
[2019-12-04 00:28] VITALS: BP 127/73
[2019-12-04] MEDS: MULTIVITAMINS WITH MINERALS, THERAPEUTIC TABLET PO SCH (08:05)
[2019-12-04] MEDS: THIAMINE 100 MG TABLET PO SCH ×2 (08:05→16:26)
[2019-12-04] MEDS: FLUoxetine HCL 20 MG CAPSULE PO SCH (08:05)
[2019-12-04] MEDS: FOLIC ACID 1 MG TABLET PO SCH (08:05)
[2019-12-04] MEDS: NALTREXONE HCL 50 MG TABLET PO SCH (08:06)
[2019-12-04] MEDS: AmLODIPine BESYLATE 2.5 MG TABLET PO SCH (08:06)
[2019-12-04] MEDS ORDERED: MODAFINIL 100 MG TABLET PO SCH (09:00)
[2019-12-04 16:05] VITALS: BP 141/78
[2019-12-04] MEDS: OLANZapine 10 MG RAPDIS TABLET PO SCH (20:29)
[2019-12-04] MEDS: ZOLPIDEM TARTRATE 10 MG TABLET PO PRN (20:57)
[2019-12-05 06:16] VITALS: BP 105/63
[2019-12-05] MEDS: FLUoxetine HCL 20 MG CAPSULE PO SCH (08:43)
[2019-12-05] MEDS: MULTIVITAMINS WITH MINERALS, THERAPEUTIC TABLET PO SCH (08:44)
[2019-12-05] MEDS: THIAMINE 100 MG TABLET PO SCH ×2 (08:44→16:31)
[2019-12-05] MEDS: NALTREXONE HCL 50 MG TABLET PO SCH (08:44)
[2019-12-05] MEDS: FOLIC ACID 1 MG TABLET PO SCH (08:44)
[2019-12-05] MEDS: AmLODIPine BESYLATE 2.5 MG TABLET PO SCH (08:48)
[2019-12-05] MEDS ORDERED: MODAFINIL 100 MG TABLET PO SCH (09:00)
[2019-12-05] MEDS ORDERED: FLUO-191 PO (18:04)
[2019-12-05] MEDS ORDERED: MODA200T48 PO (18:04)
[2019-12-05] MEDS ORDERED: NALT50TA6 PO (18:04)
[2019-12-05] MEDS ORDERED: OLAN10TA6 PO (18:04)
[2019-12-05] MEDS ORDERED: AMLO2.5T4 PO (18:04)
[2019-12-05] MEDS: LORazepam 1 MG TABLET PO PRN (19:36)
[2019-12-05] MEDS: OLANZapine 10 MG RAPDIS TABLET PO SCH (20:33)
[2019-12-06 00:01] VITALS: BP 130/70
[2019-12-06] MEDS: ZOLPIDEM TARTRATE 10 MG TABLET PO PRN ×2 (01:30→21:47)
[2019-12-06] MEDS: AmLODIPine BESYLATE 2.5 MG TABLET PO SCH (08:29)
[2019-12-06] MEDS: FLUoxetine HCL 20 MG CAPSULE PO SCH (08:29)
[2019-12-06] MEDS: MULTIVITAMINS WITH MINERALS, THERAPEUTIC TABLET PO SCH (08:29)
[2019-12-06] MEDS: FOLIC ACID 1 MG TABLET PO SCH (08:29)
[2019-12-06] MEDS: MODAFINIL 100 MG TABLET PO SCH (08:29)
[2019-12-06] MEDS: NALTREXONE HCL 50 MG TABLET PO SCH (08:29)
[2019-12-06 08:52] VITALS: BP 133/68
[2019-12-06] MEDS: LORazepam 1 MG TABLET PO PRN (18:01)
[2019-12-06 18:15] VITALS: BP 111/75
[2019-12-06] MEDS: OLANZapine 10 MG RAPDIS TABLET PO SCH (21:37)
[2019-12-07] MEDS: LORazepam 1 MG TABLET PO PRN ×3 (00:09→16:29)
[2019-12-07 00:20] VITALS: BP 119/65
[2019-12-07] MEDS: FLUoxetine HCL 20 MG CAPSULE PO SCH (09:12)
[2019-12-07] MEDS: MULTIVITAMINS WITH MINERALS, THERAPEUTIC TABLET PO SCH (09:12)
[2019-12-07] MEDS: MODAFINIL 100 MG TABLET PO SCH (09:12)
[2019-12-07] MEDS: NALTREXONE HCL 50 MG TABLET PO SCH (09:12)
[2019-12-07] MEDS: AmLODIPine BESYLATE 2.5 MG TABLET PO SCH (09:13)
[2019-12-07 09:21] VITALS: BP 113/67
[2019-12-07] MEDS: OLANZapine 5 MG RAPDIS TABLET PO PRN (16:17)
[2019-12-07] MEDS: OLANZapine 10 MG RAPDIS TABLET PO SCH (21:43)
[2019-12-08] MEDS: ZOLPIDEM TARTRATE 10 MG TABLET PO PRN ×2 (01:00→20:20)
[2019-12-08 01:33] VITALS: BP 119/76
[2019-12-08] MEDS: NALTREXONE HCL 50 MG TABLET PO SCH (08:07)
[2019-12-08] MEDS: AmLODIPine BESYLATE 2.5 MG TABLET PO SCH (08:07)
[2019-12-08] MEDS: MULTIVITAMINS WITH MINERALS, THERAPEUTIC TABLET PO SCH (08:07)
[2019-12-08] MEDS: FLUoxetine HCL 20 MG CAPSULE PO SCH (08:08)
[2019-12-08] MEDS: MODAFINIL 100 MG TABLET PO SCH (08:08)
[2019-12-08 16:07] VITALS: BP 123/71
[2019-12-08] MEDS: OLANZapine 5 MG RAPDIS TABLET PO PRN (16:13)
[2019-12-08] MEDS: LORazepam 1 MG TABLET PO PRN ×2 (16:14→19:04)
[2019-12-08] MEDS: OLANZapine 10 MG RAPDIS TABLET PO SCH (20:20)
[2019-12-09] VITALS (8 sets, daily range): BP systolic 138–149; BP diastolic 74–100
[2019-12-09] MEDS: LORazepam 1 MG TABLET PO PRN ×4 (02:19→20:11)
[2019-12-09] MEDS: AmLODIPine BESYLATE 2.5 MG TABLET PO SCH (08:10)
[2019-12-09] MEDS: MULTIVITAMINS WITH MINERALS, THERAPEUTIC TABLET PO SCH (08:10)
[2019-12-09] MEDS: NALTREXONE HCL 50 MG TABLET PO SCH (08:10)
[2019-12-09] MEDS: FLUoxetine HCL 20 MG CAPSULE PO SCH (08:10)
[2019-12-09] MEDS: MODAFINIL 100 MG TABLET PO SCH (08:10)
[2019-12-09] MEDS: OLANZapine 5 MG RAPDIS TABLET PO PRN (18:28)
[2019-12-09] MEDS: OLANZapine 10 MG RAPDIS TABLET PO SCH (20:27)
[2019-12-09] MEDS: ZOLPIDEM TARTRATE 10 MG TABLET PO PRN (22:31)
[2019-12-10 00:11] VITALS: BP 109/63
[2019-12-10] MEDS: LORazepam 1 MG TABLET PO PRN ×2 (00:14→19:32)
[2019-12-10 00:42] VITALS: BP 109/63
[2019-12-10] MEDS: OLANZapine 5 MG RAPDIS TABLET PO PRN (01:13)
[2019-12-10 01:37] VITALS: BP 109/63
[2019-12-10] MEDS: NALTREXONE HCL 50 MG TABLET PO SCH (08:09)
[2019-12-10] MEDS: MULTIVITAMINS WITH MINERALS, THERAPEUTIC TABLET PO SCH (08:10)
[2019-12-10] MEDS: AmLODIPine BESYLATE 2.5 MG TABLET PO SCH (08:10)
[2019-12-10] MEDS: FLUoxetine HCL 20 MG CAPSULE PO SCH (08:10)
[2019-12-10] MEDS: MODAFINIL 100 MG TABLET PO SCH (08:10)
[2019-12-10 15:52] VITALS: BP 138/88
[2019-12-10 16:04] VITALS: BP 138/88
[2019-12-10] MEDS: OLANZapine 10 MG RAPDIS TABLET PO SCH (21:12)
[2019-12-10] MEDS: ZOLPIDEM TARTRATE 10 MG TABLET PO PRN (22:02)
[2019-12-11 01:05] VITALS: BP 142/97
[2019-12-11] MEDS: LORazepam 1 MG TABLET PO PRN ×2 (01:09→19:42)
[2019-12-11 07:55] LABS: BASOPHILS % (AUTO) 0.4 % (0.0-2.0); EOSINOPHILS % (AUTO) 2.1 % (1.0-6.0); HEMATOCRIT 39.2 % (41-53); HEMOGLOBIN 12.8 g/dL (13.5-17.5); LYMPHOCYTES # (AUTO) 3.4 K/uL (1.0-4.8); LYMPHOCYTES % (AUTO) 36.2 % (22.0-44.0); MEAN CORPUSCULAR HEMOGLOBIN 30.7 pg (26.0-34.0); MEAN CORPUSCULAR HGB CONC 32.7 G/dL (31.0-37.0); MEAN CORPUSCULAR VOLUME 94 fL (80-100); MONOCYTES # (AUTO) 0.6 K/uL (0.1-1.0); MONOCYTES % (AUTO) 6.9 % (2.0-9.0); NEUTROPHILS # (AUTO) 5.1 K/uL (1.8-7.7); NEUTROPHILS % (AUTO) 54.4 % (40.0-70.0); PLATELET COUNT (AUTO) 237 K/uL (150-450); RED BLOOD CELL COUNT(AUTO) 4.17 MIL/uL (4.50-5.90); RED CELL DISTRIBUTION WIDTH 14.1 % (11.5-14.5)
[2019-12-11 08:00] VITALS: BP 120/75
[2019-12-11 08:38] LABS: ALANINE AMINOTRANSFERASE 36 U/L (12-78); ALBUMIN 3.5 g/dL (3.4-5.0); ALKALINE PHOSPHATASE 88 U/L (46-116); ANION GAP 11 mmol/L (8-16); ASPARTATE AMINOTRANSFERASE 20 U/L (15-37); BILIRUBIN,TOTAL 0.2 mg/dL (0.1-1.0); CALCIUM, TOTAL 8.9 mg/dL (8.8-10.5); CARBON DIOXIDE 26 mmol/L (22-29); CHLORIDE 107 mmol/L (98-107); CREATINE KINASE, TOTAL ONLY 57 U/L (39-308); CREATININE 0.61 mg/dL (0.60-1.30); GLOMERULAR FILTR. RATE CALC > 60 mL/min (>60); GLUCOSE,RANDOM 94 mg/dL (70-110); SODIUM SERUM 144 mmol/L (136-145); TOTAL PROTEIN, SERUM 6.8 g/dL (6.4-8.2); UREA NITROGEN, BLOOD 20 mg/dL (7-18)
[2019-12-11] MEDS: NALTREXONE HCL 50 MG TABLET PO SCH (08:56)
[2019-12-11] MEDS: MODAFINIL 100 MG TABLET PO SCH (08:56)
[2019-12-11] MEDS: MULTIVITAMINS WITH MINERALS, THERAPEUTIC TABLET PO SCH (08:56)
[2019-12-11] MEDS: AmLODIPine BESYLATE 2.5 MG TABLET PO SCH (08:56)
[2019-12-11] MEDS: FLUoxetine HCL 20 MG CAPSULE PO SCH (08:57)
[2019-12-11 09:56] VITALS: BP 120/75
[2019-12-11] MEDS ORDERED: OLAN10TA22 PO (15:10)
[2019-12-11] MEDS ORDERED: Modafinil PO (15:10)
[2019-12-11] MEDS ORDERED: FLUO-191 PO (15:10)
[2019-12-11] MEDS ORDERED: NALT50TA PO (15:10)
[2019-12-11 16:03] VITALS: BP 132/89
[2019-12-11] MEDS: OLANZapine 10 MG RAPDIS TABLET PO SCH (20:31)
[2019-12-11] MEDS: ZOLPIDEM TARTRATE 10 MG TABLET PO PRN (21:06)
[2019-12-12 00:04] VITALS: BP 121/88
[2019-12-12] MEDS: LORazepam 1 MG TABLET PO PRN ×2 (00:17→02:59)
[2019-12-12] MEDS: OLANZapine 5 MG RAPDIS TABLET PO PRN (01:08)
[2019-12-12 02:50] VITALS: BP 125/78
[2019-12-12] MEDS: MODAFINIL 100 MG TABLET PO SCH (08:49)
[2019-12-12] MEDS: MULTIVITAMINS WITH MINERALS, THERAPEUTIC TABLET PO SCH (08:49)
[2019-12-12] MEDS: FLUoxetine HCL 20 MG CAPSULE PO SCH (08:49)
[2019-12-12] MEDS: NALTREXONE HCL 50 MG TABLET PO SCH (08:49)
[2019-12-12] MEDS: AmLODIPine BESYLATE 2.5 MG TABLET PO SCH (08:50)
== END 2019-12-12 15:00 | disposition home or self-care (01) | DRG 885 ==
LOC: EMS 08:02 → B2X 12:32
PROVIDERS: ADMIT Psychiatry & Neurology Psychiatry; ATTEND Psychiatry & Neurology Psychiatry
DX: F25.1 Schizoaffective disorder, depressive type (principal); J18.9 Pneumonia, unspecified organism; R45.851 Suicidal ideations; F41.0 Panic disorder [episodic paroxysmal anxiety]; E11.9 Type 2 diabetes mellitus without complications; E78.5 Hyperlipidemia, unspecified; E87.6 Hypokalemia; F12.90 Cannabis use, unspecified, uncomplicated; G25.81 Restless legs syndrome; I10 Essential (primary) hypertension; M16.12 Unilateral primary osteoarthritis, left hip; Z91.5 Personal history of self-harm; Z79.899 Other long term (current) drug therapy; W18.39XA Other fall on same level, initial encounter; Y93.89 Activity, other specified; Y92.89 Other specified places as the place of occurrence of the external cause; Y99.8 Other external cause status; Z03.818 Encounter for observation for suspected exposure to other biological agents ruled out
CPT/HCPCS: 83036; 83735; 84439; 84443; 86592; 90732; G0480; J1200; J1630; J2060

== ENCOUNTER 2019-12-16 02:13 | Inpatient (IN) | payer MEDICARE, MEDICAID ==
[~2019-12-16 02:13] MED LIST changes: +AMLO2.5T4 PO; -AMLO5TAB9 PO; -LEVO750T68 PO; +Modafinil PO; +NALT50TA PO; +OLAN10TA22 PO; -OLAN7.5T2 PO
[2019-12-16 03:45] VITALS: BP 146/85
[2019-12-16] MEDS: LORazepam 2 MG TABLET PO PRN ×2 (04:53→19:52)
[2019-12-16] MEDS ORDERED: -PHARMACY VACCINE NOTE- MISC ONE (06:00)
[2019-12-16 08:32] VITALS: BP 118/62
[2019-12-16] MEDS ORDERED: MODA100T31 PO (12:56)
[2019-12-16] MEDS ORDERED: MAGNESIUM HYDROXIDE SUSPENSION 30 ML UDCUP PO PRN (13:00)
[2019-12-16] MEDS ORDERED: LOPERAMIDE HCL 2 MG CAPSULE PO PRN (13:00)
[2019-12-16] MEDS ORDERED: GuaiFENesin/D-METHORPHAN [SUGAR-FREE] 200-20MG/10 ML SYRUP UDCUP PO PRN (13:00)
[2019-12-16] MEDS ORDERED: PROMETHAZINE HCL 25 MG TABLET PO PRN (13:00)
[2019-12-16] MEDS ORDERED: ACETAMINOPHEN 325 MG TABLET PO PRN (13:00)
[2019-12-16] MEDS ORDERED: HydrOXYzine PAMOATE 50 MG CAPSULE PO PRN (13:00)
[2019-12-16 16:25] VITALS: BP 113/67
[2019-12-16] MEDS: THIAMINE 100 MG TABLET PO SCH (17:19)
[2019-12-16] MEDS: ATORVASTATIN CALCIUM 10 MG TABLET PO SCH (20:27)
[2019-12-16] MEDS: OLANZapine 5 MG RAPDIS TABLET PO SCH (20:27)
[2019-12-17] MEDS: ZOLPIDEM TARTRATE 10 MG TABLET PO PRN (01:57)
[2019-12-17] MEDS: LORazepam 2 MG TABLET PO PRN (03:22)
[2019-12-17] MEDS: MAG HYDROX/AL HYDROX/SIMETH ES 30 ML SUSPENSION UDCUP PO PRN (03:54)
[2019-12-17 05:11] VITALS: BP 119/69
[2019-12-17 08:02] VITALS: BP 109/72
[2019-12-17] MEDS: MULTIVITAMINS WITH MINERALS, THERAPEUTIC TABLET PO SCH (08:43)
[2019-12-17] MEDS: MODAFINIL 100 MG TABLET PO SCH (08:43)
[2019-12-17] MEDS: THIAMINE 100 MG TABLET PO SCH ×2 (08:44→16:38)
[2019-12-17] MEDS: FLUoxetine HCL 20 MG CAPSULE PO SCH (08:44)
[2019-12-17] MEDS: NALTREXONE HCL 50 MG TABLET PO SCH (08:44)
[2019-12-17] MEDS: FOLIC ACID 1 MG TABLET PO SCH (08:44)
[2019-12-17] MEDS: ATORVASTATIN CALCIUM 10 MG TABLET PO SCH (20:25)
[2019-12-17] MEDS: OLANZapine 5 MG RAPDIS TABLET PO SCH (20:25)
[2019-12-18 01:23] VITALS: BP 137/70
[2019-12-18] MEDS: ZOLPIDEM TARTRATE 10 MG TABLET PO PRN ×2 (01:39→21:38)
[2019-12-18] MEDS: LORazepam 2 MG TABLET PO PRN ×2 (04:18→19:25)
[2019-12-18] MEDS: MODAFINIL 100 MG TABLET PO SCH (08:01)
[2019-12-18] MEDS: FLUoxetine HCL 20 MG CAPSULE PO SCH (08:01)
[2019-12-18] MEDS: NALTREXONE HCL 50 MG TABLET PO SCH (08:01)
[2019-12-18] MEDS: MULTIVITAMINS WITH MINERALS, THERAPEUTIC TABLET PO SCH (08:02)
[2019-12-18] MEDS: FOLIC ACID 1 MG TABLET PO SCH (08:02)
[2019-12-18] MEDS: THIAMINE 100 MG TABLET PO SCH ×2 (08:02→16:32)
[2019-12-18 08:17] VITALS: BP 151/96
[2019-12-18 08:28] LABS: EOSINOPHILS % (AUTO) 1.8 % (1.0-6.0); HEMATOCRIT 41.1 % (41-53); HEMOGLOBIN 13.6 g/dL (13.5-17.5); LYMPHOCYTES % (AUTO) 36.5 % (22.0-44.0); MEAN CORPUSCULAR HEMOGLOBIN 30.7 pg (26.0-34.0); MEAN CORPUSCULAR VOLUME 93 fL (80-100); MONOCYTES # (AUTO) 0.5 K/uL (0.1-1.0); MONOCYTES % (AUTO) 6.8 % (2.0-9.0); NEUTROPHILS # (AUTO) 4.4 K/uL (1.8-7.7); NEUTROPHILS % (AUTO) 53.9 % (40.0-70.0); PLATELET COUNT (AUTO) 270 K/uL (150-450); RED BLOOD CELL COUNT(AUTO) 4.42 MIL/uL (4.50-5.90); RED CELL DISTRIBUTION WIDTH 14.1 % (11.5-14.5)
[2019-12-18 09:05] LABS: ALANINE AMINOTRANSFERASE 89 U/L (12-78); ALBUMIN 3.6 g/dL (3.4-5.0); ALKALINE PHOSPHATASE 83 U/L (46-116); ANION GAP 9 mmol/L (8-16); ASPARTATE AMINOTRANSFERASE 61 U/L (15-37); BILIRUBIN,TOTAL 0.4 mg/dL (0.1-1.0); CALCIUM, TOTAL 8.6 mg/dL (8.8-10.5); CARBON DIOXIDE 28 mmol/L (22-29); CHLORIDE 104 mmol/L (98-107); CHOL/HDL RATIO 5.3 (4.2-7.3); CHOLESTEROL 179 mg/dL (131-200); CREATININE 0.74 mg/dL (0.60-1.30); FREE T4 (FREE THYROXINE) 1.02 ng/dL (0.76-1.46); GLOMERULAR FILTR. RATE CALC > 60 mL/min (>60); GLUCOSE,RANDOM 103 mg/dL (70-110); HDL CHOLESTEROL 34 mg/dL (40-60); LDL CHOL (CALC.) 110 mg/dL (0-130); POTASSIUM 3.6 mmol/L (3.5-5.1); SODIUM SERUM 141 mmol/L (136-145); THYROID STIMULATING HORMONE 1.14 uIU/mL (0.36-3.74); TOTAL PROTEIN, SERUM 6.7 g/dL (6.4-8.2); TRIGLYCERIDES 176 mg/dL (15-150); UREA NITROGEN, BLOOD 21 mg/dL (7-18)
[2019-12-18] MEDS: AmLODIPine BESYLATE 2.5 MG TABLET PO SCH (13:24)
[2019-12-18 16:01] VITALS: BP 130/75
[2019-12-18] MEDS: MUPIROCIN CALCIUM 2% 22 GM OINTMENT NASAL SCH (16:32)
[2019-12-18] MEDS: MAG HYDROX/AL HYDROX/SIMETH ES 30 ML SUSPENSION UDCUP PO PRN (18:40)
[2019-12-18] MEDS: OLANZapine 5 MG RAPDIS TABLET PO SCH (20:28)
[2019-12-18] MEDS: ATORVASTATIN CALCIUM 10 MG TABLET PO SCH (20:28)
[2019-12-19 05:33] VITALS: BP 135/83
[2019-12-19 08:06] VITALS: BP 149/80
[2019-12-19] MEDS: MULTIVITAMINS WITH MINERALS, THERAPEUTIC TABLET PO SCH (08:33)
[2019-12-19] MEDS: NALTREXONE HCL 50 MG TABLET PO SCH (08:33)
[2019-12-19] MEDS: MODAFINIL 100 MG TABLET PO SCH (08:33)
[2019-12-19] MEDS: FOLIC ACID 1 MG TABLET PO SCH (08:33)
[2019-12-19] MEDS: AmLODIPine BESYLATE 2.5 MG TABLET PO SCH (08:33)
[2019-12-19] MEDS: THIAMINE 100 MG TABLET PO SCH ×2 (08:33→16:33)
[2019-12-19] MEDS: FLUoxetine HCL 20 MG CAPSULE PO SCH (08:34)
[2019-12-19] MEDS: MUPIROCIN CALCIUM 2% 22 GM OINTMENT NASAL SCH ×2 (08:58→16:33)
[2019-12-19 09:04] LABS: AMPHET/METH SCREEN,URINE NEGATIVE (NEGATIVE); BARBITURATE SCREEN, URINE NEGATIVE (NEGATIVE); BENZODIAZEPINES SCREEN,URINE NEGATIVE (NEGATIVE); CANNABINOID SCREEN,URINE NEGATIVE (NEGATIVE); COCAINE SCREEN,URINE NEGATIVE (NEGATIVE); METHADONE SCREEN, URINE NEGATIVE (NEGATIVE); OPIATE SCREEN,URINE NEGATIVE (NEGATIVE)
[2019-12-19 09:08] LABS: PHENCYCLIDINE SCREEN,URINE NEGATIVE (NEGATIVE)
[2019-12-19] MEDS: LORazepam 2 MG TABLET PO PRN (10:09)
[2019-12-19] MEDS: HALOPERIDOL 5 MG TABLET PO PRN (10:34)
[2019-12-19 16:10] VITALS: BP 133/89
[2019-12-19] MEDS: ATORVASTATIN CALCIUM 10 MG TABLET PO SCH (20:30)
[2019-12-19] MEDS: OLANZapine 5 MG RAPDIS TABLET PO SCH (20:31)
[2019-12-20 08:20] VITALS: BP 112/67
[2019-12-20] MEDS: FOLIC ACID 1 MG TABLET PO SCH (09:00)
[2019-12-20] MEDS: AmLODIPine BESYLATE 2.5 MG TABLET PO SCH (09:00)
[2019-12-20] MEDS: MULTIVITAMINS WITH MINERALS, THERAPEUTIC TABLET PO SCH (09:00)
[2019-12-20] MEDS: NALTREXONE HCL 50 MG TABLET PO SCH (09:00)
[2019-12-20] MEDS: THIAMINE 100 MG TABLET PO SCH ×2 (09:01→17:36)
[2019-12-20] MEDS: MODAFINIL 100 MG TABLET PO SCH (09:02)
[2019-12-20] MEDS: FLUoxetine HCL 20 MG CAPSULE PO SCH (09:03)
[2019-12-20] MEDS: MUPIROCIN CALCIUM 2% 22 GM OINTMENT NASAL SCH ×2 (10:06→17:36)
[2019-12-20 16:10] VITALS: BP 132/70
[2019-12-20] MEDS: LORazepam 2 MG TABLET PO PRN (19:28)
[2019-12-20] MEDS: OLANZapine 5 MG RAPDIS TABLET PO SCH (20:31)
[2019-12-20] MEDS: ATORVASTATIN CALCIUM 10 MG TABLET PO SCH (20:31)
[2019-12-20] MEDS: ZOLPIDEM TARTRATE 10 MG TABLET PO PRN (21:10)
[2019-12-21] MEDS: HALOPERIDOL 5 MG TABLET PO PRN ×2 (04:58→10:09)
[2019-12-21] MEDS: LORazepam 2 MG TABLET PO PRN ×3 (04:58→19:58)
[2019-12-21 08:49] VITALS: BP 124/66
[2019-12-21] MEDS: FOLIC ACID 1 MG TABLET PO SCH (08:56)
[2019-12-21] MEDS: MUPIROCIN CALCIUM 2% 22 GM OINTMENT NASAL SCH ×2 (08:56→17:20)
[2019-12-21] MEDS: MODAFINIL 100 MG TABLET PO SCH (08:57)
[2019-12-21] MEDS: FLUoxetine HCL 20 MG CAPSULE PO SCH (08:57)
[2019-12-21] MEDS: MULTIVITAMINS WITH MINERALS, THERAPEUTIC TABLET PO SCH (08:57)
[2019-12-21] MEDS: NALTREXONE HCL 50 MG TABLET PO SCH (08:57)
[2019-12-21] MEDS: AmLODIPine BESYLATE 2.5 MG TABLET PO SCH (08:58)
[2019-12-21] MEDS: THIAMINE 100 MG TABLET PO SCH ×2 (10:09→17:20)
[2019-12-21] MEDS: OLANZapine 5 MG RAPDIS TABLET PO SCH (21:01)
[2019-12-21] MEDS: ATORVASTATIN CALCIUM 10 MG TABLET PO SCH (21:01)
[2019-12-21] MEDS: ZOLPIDEM TARTRATE 10 MG TABLET PO PRN (22:00)
[2019-12-22 03:19] VITALS: BP 118/81
[2019-12-22] MEDS: LORazepam 2 MG TABLET PO PRN (03:26)
[2019-12-22] MEDS: MAG HYDROX/AL HYDROX/SIMETH ES 30 ML SUSPENSION UDCUP PO PRN (04:35)
[2019-12-22 08:21] VITALS: BP 105/68
[2019-12-22] MEDS: NALTREXONE HCL 50 MG TABLET PO SCH (08:33)
[2019-12-22] MEDS: HALOPERIDOL 5 MG TABLET PO PRN (08:33)
[2019-12-22] MEDS: MULTIVITAMINS WITH MINERALS, THERAPEUTIC TABLET PO SCH (08:33)
[2019-12-22] MEDS: MODAFINIL 100 MG TABLET PO SCH (08:33)
[2019-12-22] MEDS: FLUoxetine HCL 20 MG CAPSULE PO SCH (08:33)
[2019-12-22] MEDS: FOLIC ACID 1 MG TABLET PO SCH (08:33)
[2019-12-22] MEDS: AmLODIPine BESYLATE 2.5 MG TABLET PO SCH (08:33)
[2019-12-22] MEDS: THIAMINE 100 MG TABLET PO SCH ×2 (08:33→16:30)
[2019-12-22] MEDS: MUPIROCIN CALCIUM 2% 22 GM OINTMENT NASAL SCH ×2 (09:48→16:30)
[2019-12-22 16:05] VITALS: BP 124/69
[2019-12-22] MEDS: ATORVASTATIN CALCIUM 10 MG TABLET PO SCH (20:29)
[2019-12-22] MEDS: OLANZapine 10 MG RAPDIS TABLET PO SCH (20:32)
[2019-12-23 05:41] VITALS: BP 121/81
[2019-12-23 08:04] VITALS: BP 120/69
[2019-12-23] MEDS: MUPIROCIN CALCIUM 2% 22 GM OINTMENT NASAL SCH (08:46)
[2019-12-23] MEDS: FLUoxetine HCL 20 MG CAPSULE PO SCH (08:47)
[2019-12-23] MEDS: MULTIVITAMINS WITH MINERALS, THERAPEUTIC TABLET PO SCH (08:48)
[2019-12-23] MEDS: THIAMINE 100 MG TABLET PO SCH ×2 (08:48→16:35)
[2019-12-23] MEDS: NALTREXONE HCL 50 MG TABLET PO SCH (08:48)
[2019-12-23] MEDS: MODAFINIL 100 MG TABLET PO SCH (08:48)
[2019-12-23] MEDS: FOLIC ACID 1 MG TABLET PO SCH (08:48)
[2019-12-23] MEDS: AmLODIPine BESYLATE 2.5 MG TABLET PO SCH (08:49)
[2019-12-23 16:07] VITALS: BP 107/64
[2019-12-23] MEDS: OLANZapine 10 MG RAPDIS TABLET PO SCH (20:32)
[2019-12-23] MEDS: ATORVASTATIN CALCIUM 10 MG TABLET PO SCH (20:32)
[2019-12-23] MEDS: ZOLPIDEM TARTRATE 10 MG TABLET PO PRN (20:58)
[2019-12-24 00:07] VITALS: BP 122/62
[2019-12-24] MEDS: LORazepam 2 MG TABLET PO PRN (01:57)
[2019-12-24] MEDS: HALOPERIDOL 5 MG TABLET PO PRN (04:06)
[2019-12-24] MEDS: FLUoxetine HCL 20 MG CAPSULE PO SCH (08:23)
[2019-12-24] MEDS: MULTIVITAMINS WITH MINERALS, THERAPEUTIC TABLET PO SCH (08:24)
[2019-12-24] MEDS: THIAMINE 100 MG TABLET PO SCH ×2 (08:24→16:31)
[2019-12-24] MEDS: FOLIC ACID 1 MG TABLET PO SCH (08:24)
[2019-12-24] MEDS: NALTREXONE HCL 50 MG TABLET PO SCH (08:24)
[2019-12-24] MEDS: MODAFINIL 100 MG TABLET PO SCH (08:24)
[2019-12-24] MEDS: AmLODIPine BESYLATE 2.5 MG TABLET PO SCH (09:00)
[2019-12-24 13:24] VITALS: BP 125/78
[2019-12-24 16:01] VITALS: BP 108/69
[2019-12-24] MEDS: ATORVASTATIN CALCIUM 10 MG TABLET PO SCH (20:37)
[2019-12-24] MEDS: OLANZapine 10 MG RAPDIS TABLET PO SCH (20:37)
[2019-12-24] MEDS: ZOLPIDEM TARTRATE 10 MG TABLET PO PRN (21:27)
[2019-12-25 01:50] VITALS: BP 122/84
[2019-12-25] MEDS: LORazepam 2 MG TABLET PO PRN (05:44)
[2019-12-25] MEDS: MODAFINIL 100 MG TABLET PO SCH (08:17)
[2019-12-25] MEDS: THIAMINE 100 MG TABLET PO SCH ×2 (08:17→16:34)
[2019-12-25] MEDS: FLUoxetine HCL 20 MG CAPSULE PO SCH (08:18)
[2019-12-25] MEDS: MULTIVITAMINS WITH MINERALS, THERAPEUTIC TABLET PO SCH (08:18)
[2019-12-25] MEDS: FOLIC ACID 1 MG TABLET PO SCH (08:18)
[2019-12-25] MEDS: NALTREXONE HCL 50 MG TABLET PO SCH (08:18)
[2019-12-25] MEDS: AmLODIPine BESYLATE 2.5 MG TABLET PO SCH (08:19)
[2019-12-25 08:28] LABS: ALANINE AMINOTRANSFERASE 36 U/L (12-78); ALBUMIN 3.2 g/dL (3.4-5.0); ALKALINE PHOSPHATASE 94 U/L (46-116); ANION GAP 13 mmol/L (8-16); ASPARTATE AMINOTRANSFERASE 17 U/L (15-37); BILIRUBIN,TOTAL 0.2 mg/dL (0.1-1.0); CALCIUM, TOTAL 8.6 mg/dL (8.8-10.5); CARBON DIOXIDE 23 mmol/L (22-29); CHLORIDE 106 mmol/L (98-107); CREATININE 0.66 mg/dL (0.60-1.30); GLOMERULAR FILTR. RATE CALC > 60 mL/min (>60); GLUCOSE,RANDOM 111 mg/dL (70-110); POTASSIUM 3.9 mmol/L (3.5-5.1); SODIUM SERUM 142 mmol/L (136-145); TOTAL PROTEIN, SERUM 6.9 g/dL (6.4-8.2); UREA NITROGEN, BLOOD 18 mg/dL (7-18)
[2019-12-25 10:34] VITALS: BP 118/75
[2019-12-25 16:21] VITALS: BP 129/65
[2019-12-25] MEDS: OLANZapine 10 MG RAPDIS TABLET PO SCH (20:11)
[2019-12-25] MEDS: ATORVASTATIN CALCIUM 10 MG TABLET PO SCH (20:11)
[2019-12-26 00:01] VITALS: BP 117/56
[2019-12-26] MEDS: ZOLPIDEM TARTRATE 10 MG TABLET PO PRN (00:02)
[2019-12-26 06:22] VITALS: BP 117/63
[2019-12-26] MEDS: HALOPERIDOL 5 MG TABLET PO PRN (06:24)
[2019-12-26] MEDS: LORazepam 2 MG TABLET PO PRN ×2 (06:24→11:47)
[2019-12-26] MEDS: MULTIVITAMINS WITH MINERALS, THERAPEUTIC TABLET PO SCH (08:03)
[2019-12-26] MEDS: MODAFINIL 100 MG TABLET PO SCH (08:04)
[2019-12-26] MEDS: BuPROPion HCL XL 150 MG ER TABLET PO SCH (08:04)
[2019-12-26] MEDS: FOLIC ACID 1 MG TABLET PO SCH (08:04)
[2019-12-26] MEDS: THIAMINE 100 MG TABLET PO SCH (08:04)
[2019-12-26] MEDS: AmLODIPine BESYLATE 2.5 MG TABLET PO SCH (08:04)
[2019-12-26] MEDS: FLUoxetine HCL 20 MG CAPSULE PO SCH (08:05)
[2019-12-26] MEDS: NALTREXONE HCL 50 MG TABLET PO SCH (08:05)
[2019-12-26 08:21] VITALS: BP 124/62
[2019-12-26 16:01] VITALS: BP 109/64
[2019-12-26] MEDS: ATORVASTATIN CALCIUM 10 MG TABLET PO SCH (20:31)
[2019-12-26] MEDS: OLANZapine 10 MG RAPDIS TABLET PO SCH (20:31)
[2019-12-27 00:50] VITALS: BP 102/63
[2019-12-27] MEDS: HALOPERIDOL 5 MG TABLET PO PRN (03:24)
[2019-12-27] MEDS: LORazepam 2 MG TABLET PO PRN (03:25)
[2019-12-27 08:24] VITALS: BP 105/68
[2019-12-27] MEDS: MODAFINIL 100 MG TABLET PO SCH (08:32)
[2019-12-27] MEDS: FLUoxetine HCL 20 MG CAPSULE PO SCH (08:32)
[2019-12-27] MEDS: BuPROPion HCL XL 150 MG ER TABLET PO SCH (08:32)
[2019-12-27] MEDS: AmLODIPine BESYLATE 2.5 MG TABLET PO SCH (08:33)
[2019-12-27] MEDS: NALTREXONE HCL 50 MG TABLET PO SCH (08:33)
[2019-12-27] MEDS: MULTIVITAMINS WITH MINERALS, THERAPEUTIC TABLET PO SCH (08:33)
[2019-12-27 16:01] VITALS: BP 93/60
[2019-12-27] MEDS: ATORVASTATIN CALCIUM 10 MG TABLET PO SCH (21:00)
[2019-12-27] MEDS: OLANZapine 10 MG RAPDIS TABLET PO SCH (21:00)
[2019-12-28] MEDS: ZOLPIDEM TARTRATE 10 MG TABLET PO PRN ×2 (00:02→21:10)
[2019-12-28 00:13] VITALS: BP 116/61
[2019-12-28 05:58] VITALS: BP 117/67
[2019-12-28] MEDS: LORazepam 2 MG TABLET PO PRN ×3 (06:02→18:15)
[2019-12-28] MEDS: HALOPERIDOL 5 MG TABLET PO PRN (06:02)
[2019-12-28 08:01] VITALS: BP 146/83
[2019-12-28] MEDS: MODAFINIL 100 MG TABLET PO SCH (08:17)
[2019-12-28] MEDS: NALTREXONE HCL 50 MG TABLET PO SCH (08:18)
[2019-12-28] MEDS: FLUoxetine HCL 20 MG CAPSULE PO SCH (08:18)
[2019-12-28] MEDS: BuPROPion HCL XL 150 MG ER TABLET PO SCH (08:18)
[2019-12-28] MEDS: AmLODIPine BESYLATE 2.5 MG TABLET PO SCH (08:18)
[2019-12-28] MEDS: MULTIVITAMINS WITH MINERALS, THERAPEUTIC TABLET PO SCH (08:18)
[2019-12-28] MEDS: MAG HYDROX/AL HYDROX/SIMETH ES 30 ML SUSPENSION UDCUP PO PRN ×2 (13:33→20:43)
[2019-12-28 16:04] VITALS: BP 139/86
[2019-12-28] MEDS: OLANZapine 10 MG RAPDIS TABLET PO SCH (20:27)
[2019-12-28] MEDS: ATORVASTATIN CALCIUM 10 MG TABLET PO SCH (20:27)
[2019-12-29] MEDS: MODAFINIL 100 MG TABLET PO SCH (08:22)
[2019-12-29] MEDS: BuPROPion HCL XL 150 MG ER TABLET PO SCH (08:23)
[2019-12-29] MEDS: FLUoxetine HCL 20 MG CAPSULE PO SCH (08:23)
[2019-12-29] MEDS: AmLODIPine BESYLATE 2.5 MG TABLET PO SCH (08:23)
[2019-12-29] MEDS: NALTREXONE HCL 50 MG TABLET PO SCH (08:23)
[2019-12-29] MEDS: MULTIVITAMINS WITH MINERALS, THERAPEUTIC TABLET PO SCH (08:23)
[2019-12-29 09:06] VITALS: BP 103/71
[2019-12-29 16:00] VITALS: BP 101/60
[2019-12-29] MEDS: ATORVASTATIN CALCIUM 10 MG TABLET PO SCH (20:12)
[2019-12-29] MEDS: OLANZapine 10 MG RAPDIS TABLET PO SCH (20:12)
[2019-12-30 03:08] VITALS: BP 130/75
[2019-12-30] MEDS: HALOPERIDOL 5 MG TABLET PO PRN (03:14)
[2019-12-30] MEDS: LORazepam 2 MG TABLET PO PRN ×3 (03:14→19:59)
[2019-12-30 08:24] VITALS: BP 100/54
[2019-12-30] MEDS: MODAFINIL 100 MG TABLET PO SCH (08:44)
[2019-12-30] MEDS: MULTIVITAMINS WITH MINERALS, THERAPEUTIC TABLET PO SCH (08:44)
[2019-12-30] MEDS: FLUoxetine HCL 20 MG CAPSULE PO SCH (08:44)
[2019-12-30] MEDS: BuPROPion HCL XL 150 MG ER TABLET PO SCH (08:45)
[2019-12-30] MEDS: NALTREXONE HCL 50 MG TABLET PO SCH (08:46)
[2019-12-30] MEDS: AmLODIPine BESYLATE 2.5 MG TABLET PO SCH (08:46)
[2019-12-30] MEDS ORDERED: BUPR-47 PO (15:22)
[2019-12-30] MEDS ORDERED: NALT50TA PO (15:22)
[2019-12-30] MEDS ORDERED: OLAN10TA22 PO (15:22)
[2019-12-30] MEDS ORDERED: MODA100T65 PO (15:22)
[2019-12-30] MEDS ORDERED: FLUO-191 PO (15:22)
[2019-12-30 16:07] VITALS: BP 109/68
[2019-12-30] MEDS: OLANZapine 10 MG RAPDIS TABLET PO SCH (20:34)
[2019-12-30] MEDS: ATORVASTATIN CALCIUM 10 MG TABLET PO SCH (20:34)
[2019-12-30] MEDS: ZOLPIDEM TARTRATE 10 MG TABLET PO PRN (20:53)
[2019-12-31 06:43] VITALS: BP 121/71
[2019-12-31 08:09] VITALS: BP 120/72
[2019-12-31] MEDS: MODAFINIL 100 MG TABLET PO SCH (08:28)
[2019-12-31] MEDS: MULTIVITAMINS WITH MINERALS, THERAPEUTIC TABLET PO SCH (08:29)
[2019-12-31] MEDS: AmLODIPine BESYLATE 2.5 MG TABLET PO SCH (08:29)
[2019-12-31] MEDS: NALTREXONE HCL 50 MG TABLET PO SCH (08:29)
[2019-12-31] MEDS: BuPROPion HCL XL 150 MG ER TABLET PO SCH (08:29)
[2019-12-31] MEDS: FLUoxetine HCL 20 MG CAPSULE PO SCH (08:29)
[2019-12-31] MEDS: OMEGA-3/DHA/EPA/FISH OIL 1,000 MG CAPSULE PO SCH (11:30)
[2019-12-31 16:09] VITALS: BP 119/73
[2019-12-31] MEDS: ATORVASTATIN CALCIUM 10 MG TABLET PO SCH (20:28)
[2019-12-31] MEDS: OLANZapine 10 MG RAPDIS TABLET PO SCH (20:29)
[2020-01-01 06:01] VITALS: BP 132/84
[2020-01-01] MEDS: NALTREXONE HCL 50 MG TABLET PO SCH (08:45)
[2020-01-01] MEDS: OMEGA-3/DHA/EPA/FISH OIL 1,000 MG CAPSULE PO SCH (08:45)
[2020-01-01] MEDS: FLUoxetine HCL 20 MG CAPSULE PO SCH (08:45)
[2020-01-01] MEDS: AmLODIPine BESYLATE 2.5 MG TABLET PO SCH (08:45)
[2020-01-01] MEDS: MODAFINIL 100 MG TABLET PO SCH (08:45)
[2020-01-01] MEDS: MULTIVITAMINS WITH MINERALS, THERAPEUTIC TABLET PO SCH (08:46)
[2020-01-01] MEDS: BuPROPion HCL XL 150 MG ER TABLET PO SCH (08:53)
[2020-01-01] MEDS ORDERED: BISACODYL 5 MG EC TABLET PO PRN (19:30)
[2020-01-01] MEDS: OLANZapine 10 MG RAPDIS TABLET PO SCH (20:53)
[2020-01-01] MEDS: ATORVASTATIN CALCIUM 10 MG TABLET PO SCH (20:53)
[2020-01-01 21:30] VITALS: BP 137/76
[2020-01-02 00:35] VITALS: BP 103/65
[2020-01-02] MEDS: OMEGA-3/DHA/EPA/FISH OIL 1,000 MG CAPSULE PO SCH (08:22)
[2020-01-02] MEDS: FLUoxetine HCL 20 MG CAPSULE PO SCH (08:22)
[2020-01-02] MEDS: MODAFINIL 100 MG TABLET PO SCH (08:22)
[2020-01-02] MEDS: MULTIVITAMINS WITH MINERALS, THERAPEUTIC TABLET PO SCH (08:22)
[2020-01-02] MEDS: AmLODIPine BESYLATE 2.5 MG TABLET PO SCH (08:22)
[2020-01-02] MEDS: NALTREXONE HCL 50 MG TABLET PO SCH (08:22)
[2020-01-02] MEDS ORDERED: BuPROPion HCL XL 150 MG ER TABLET PO SCH (09:00)
[2020-01-02 10:09] VITALS: BP 132/72
[2020-01-02 13:58] LABS: GLUCOMETER DEV NAME(LOC) BV2X.; GLUCOSE,POINT OF CARE 131 MG/DL (70-110)
[2020-01-02 15:59] VITALS: BP 145/75
[2020-01-02 18:57] VITALS: BP 145/75
[2020-01-02] MEDS: OLANZapine 10 MG RAPDIS TABLET PO SCH (20:42)
[2020-01-02] MEDS: ATORVASTATIN CALCIUM 10 MG TABLET PO SCH (20:42)
[2020-01-02 22:00] VITALS: BP 150/86
[2020-01-03 00:03] VITALS: BP 140/89
== END 2020-01-03 00:10 | disposition short-term general hospital (02) | DRG 885 ==
LOC: B2X 03:40 → UNDODISIN 01-03 03:00
PROVIDERS: ADMIT Psychiatry & Neurology Psychiatry; ATTEND Psychiatry & Neurology Psychiatry
DX: F25.9 Schizoaffective disorder, unspecified (principal); E44.0 Moderate protein-calorie malnutrition; E78.5 Hyperlipidemia, unspecified; I10 Essential (primary) hypertension; F41.0 Panic disorder [episodic paroxysmal anxiety]; G25.81 Restless legs syndrome; M16.12 Unilateral primary osteoarthritis, left hip; R79.89 Other specified abnormal findings of blood chemistry; D64.9 Anemia, unspecified; E83.51 Hypocalcemia; F17.200 Nicotine dependence, unspecified, uncomplicated; K59.00 Constipation, unspecified; R73.03 Prediabetes; Z22.322 Carrier or suspected carrier of Methicillin resistant Staphylococcus aureus; Z65.3 Problems related to other legal circumstances; Z87.01 Personal history of pneumonia (recurrent); Z91.14 Patient's other noncompliance with medication regimen; Z79.899 Other long term (current) drug therapy
CPT/HCPCS: 80307; 83735; 84439; 84443; 87081

== ENCOUNTER 2020-02-03 22:45 | Inpatient (IN) | payer MEDICARE, MEDICAID ==
[~2020-02-03] VITALS: Ht 172.7 cm; Wt 95.7 kg
[~2020-02-03 22:45] MED LIST changes: -AMLO2.5T4 PO; +AMLO2.5T96 PO; +BUPR-47 PO; +MODA100T65 PO; +MULT-1239 PO; -Modafinil PO
[2020-02-04] MEDS: LORazepam 2 MG TABLET PO PRN (10:44)
[2020-02-04 17:57] VITALS: BP 138/88
[2020-02-04] MEDS: OLANZapine 5 MG RAPDIS TABLET PO PRN (19:34)
[2020-02-04] MEDS ORDERED: GuaiFENesin/D-METHORPHAN [SUGAR-FREE] 200-20MG/10 ML SYRUP UDCUP PO PRN (20:30)
[2020-02-04] MEDS ORDERED: PROMETHAZINE HCL 25 MG TABLET PO PRN (20:30)
[2020-02-04] MEDS ORDERED: MAGNESIUM HYDROXIDE SUSPENSION 30 ML UDCUP PO PRN (20:30)
[2020-02-04] MEDS ORDERED: HydrOXYzine PAMOATE 50 MG CAPSULE PO PRN (20:30)
[2020-02-04] MEDS ORDERED: LOPERAMIDE HCL 2 MG CAPSULE PO PRN (20:30)
[2020-02-04] MEDS ORDERED: MAG HYDROX/AL HYDROX/SIMETH ES 30 ML SUSPENSION UDCUP PO PRN (20:30)
[2020-02-04] MEDS ORDERED: ACETAMINOPHEN 325 MG TABLET PO PRN (20:30)
[2020-02-04] MEDS ORDERED: OLANZapine 5 MG RAPDIS TABLET PO ONE (21:00)
[2020-02-04] MEDS ORDERED: OLANZapine 10 MG RAPDIS TABLET PO SCH (21:00)
[2020-02-05] MEDS ORDERED: MAG HYDROX/AL HYDROX/SIMETH ES 30 ML SUSPENSION UDCUP PO PRN (05:15)
[2020-02-05] MEDS ORDERED: ACETAMINOPHEN 325 MG TABLET PO PRN (05:15)
[2020-02-05] MEDS ORDERED: ONDANSETRON HCL 4 MG TABLET PO PRN (05:15)
[2020-02-05] MEDS ORDERED: LOPERAMIDE HCL 2 MG CAPSULE PO PRN (05:15)
[2020-02-05] MEDS ORDERED: GuaiFENesin/D-METHORPHAN [SUGAR-FREE] 200-20MG/10 ML SYRUP UDCUP PO PRN (05:15)
[2020-02-05] MEDS ORDERED: PETROLATUM,WHITE 28 GM JELLY TP PRN (05:15)
[2020-02-05] MEDS ORDERED: IBUPROFEN 400 MG TABLET PO PRN (05:15)
[2020-02-05] MEDS ORDERED: ALBUTEROL SULFATE HFA 90 MCG/PUFF 8 GM INHALER IH PRN (05:15)
[2020-02-05] MEDS ORDERED: CloNIDine HCL 0.1 MG TABLET PO PRN (05:15)
[2020-02-05] MEDS ORDERED: MAGNESIUM HYDROXIDE SUSPENSION 30 ML UDCUP PO PRN (05:15)
[2020-02-05] MEDS ORDERED: DOCUSATE SODIUM 100 MG CAPSULE PO PRN (05:15)
[2020-02-05] MEDS ORDERED: NICOTINE 14 MG/24 HOUR PATCH TD PRN (05:15)
[2020-02-05] MEDS: FOLIC ACID 1 MG TABLET PO SCH (09:00)
[2020-02-05] MEDS ORDERED: MODAFINIL 100 MG TABLET PO SCH (09:00)
[2020-02-05] MEDS: THIAMINE 100 MG TABLET PO SCH ×2 (09:00→16:56)
[2020-02-05] MEDS: MULTIVITAMINS WITH MINERALS, THERAPEUTIC TABLET PO SCH (09:00)
[2020-02-05] MEDS: BuPROPion HCL XL 150 MG ER TABLET PO SCH (09:00)
[2020-02-05] MEDS: FLUoxetine HCL 20 MG CAPSULE PO SCH (09:00)
[2020-02-05] MEDS: AmLODIPine BESYLATE 2.5 MG TABLET PO SCH (09:00)
[2020-02-05] MEDS: NALTREXONE HCL 50 MG TABLET PO SCH (09:00)
[2020-02-05 16:10] VITALS: BP 123/77
[2020-02-05] MEDS: LORazepam 2 MG TABLET PO PRN (16:55)
[2020-02-05] MEDS: OLANZapine 5 MG RAPDIS TABLET PO PRN (16:57)
[2020-02-05] MEDS: OLANZapine 5 MG RAPDIS TABLET PO SCH (20:03)
[2020-02-05] MEDS: ZOLPIDEM TARTRATE 10 MG TABLET PO PRN (20:39)
[2020-02-06 08:00] VITALS: BP 123/71
[2020-02-06] MEDS: MULTIVITAMINS WITH MINERALS, THERAPEUTIC TABLET PO SCH (14:25)
[2020-02-06] MEDS: THIAMINE 100 MG TABLET PO SCH ×2 (14:25→17:49)
[2020-02-06] MEDS: BuPROPion HCL XL 150 MG ER TABLET PO SCH (14:26)
[2020-02-06] MEDS: FLUoxetine HCL 20 MG CAPSULE PO SCH (14:26)
[2020-02-06] MEDS: AmLODIPine BESYLATE 2.5 MG TABLET PO SCH (14:26)
[2020-02-06] MEDS: NALTREXONE HCL 50 MG TABLET PO SCH (14:26)
[2020-02-06] MEDS: FOLIC ACID 1 MG TABLET PO SCH (14:27)
[2020-02-06] MEDS: LORazepam 2 MG TABLET PO PRN (14:31)
[2020-02-06 16:01] VITALS: BP 116/73
[2020-02-06] MEDS: OLANZapine 5 MG RAPDIS TABLET PO SCH (20:30)
[2020-02-07] MEDS: ZOLPIDEM TARTRATE 10 MG TABLET PO PRN (01:08)
[2020-02-07 01:10] VITALS: BP 161/93
[2020-02-07] MEDS: MULTIVITAMINS WITH MINERALS, THERAPEUTIC TABLET PO SCH (07:56)
[2020-02-07] MEDS: THIAMINE 100 MG TABLET PO SCH ×2 (07:56→16:01)
[2020-02-07] MEDS: BuPROPion HCL XL 150 MG ER TABLET PO SCH (07:57)
[2020-02-07] MEDS: AmLODIPine BESYLATE 2.5 MG TABLET PO SCH (07:57)
[2020-02-07] MEDS: FOLIC ACID 1 MG TABLET PO SCH (07:57)
[2020-02-07] MEDS: FLUoxetine HCL 20 MG CAPSULE PO SCH (07:57)
[2020-02-07] MEDS: NALTREXONE HCL 50 MG TABLET PO SCH (07:57)
[2020-02-07 08:35] VITALS: BP 154/91
[2020-02-07 16:22] VITALS: BP 131/81
[2020-02-07] MEDS: LORazepam 2 MG TABLET PO PRN (18:36)
[2020-02-07] MEDS: OLANZapine 5 MG RAPDIS TABLET PO SCH (20:31)
[2020-02-08] MEDS: ZOLPIDEM TARTRATE 10 MG TABLET PO PRN (00:09)
[2020-02-08 00:20] VITALS: BP 144/78
[2020-02-08] MEDS: LORazepam 2 MG TABLET PO PRN (00:22)
[2020-02-08] MEDS: THIAMINE 100 MG TABLET PO SCH ×2 (09:12→16:16)
[2020-02-08] MEDS: FLUoxetine HCL 20 MG CAPSULE PO SCH (09:12)
[2020-02-08] MEDS: NALTREXONE HCL 50 MG TABLET PO SCH (09:12)
[2020-02-08] MEDS: BuPROPion HCL XL 150 MG ER TABLET PO SCH (09:12)
[2020-02-08] MEDS: FOLIC ACID 1 MG TABLET PO SCH (09:12)
[2020-02-08] MEDS: MULTIVITAMINS WITH MINERALS, THERAPEUTIC TABLET PO SCH (09:12)
[2020-02-08] MEDS: AmLODIPine BESYLATE 2.5 MG TABLET PO SCH (09:12)
[2020-02-08 09:43] VITALS: BP 132/89
[2020-02-08 16:18] VITALS: BP 119/52
[2020-02-08] MEDS: OLANZapine 5 MG RAPDIS TABLET PO SCH (21:27)
[2020-02-09 08:00] VITALS: BP 139/89
[2020-02-09] MEDS: THIAMINE 100 MG TABLET PO SCH ×2 (08:06→16:05)
[2020-02-09] MEDS: MULTIVITAMINS WITH MINERALS, THERAPEUTIC TABLET PO SCH (08:06)
[2020-02-09] MEDS: FLUoxetine HCL 20 MG CAPSULE PO SCH (08:06)
[2020-02-09] MEDS: FOLIC ACID 1 MG TABLET PO SCH (08:06)
[2020-02-09] MEDS: AmLODIPine BESYLATE 2.5 MG TABLET PO SCH (08:06)
[2020-02-09] MEDS: NALTREXONE HCL 50 MG TABLET PO SCH (08:06)
[2020-02-09] MEDS: BuPROPion HCL XL 150 MG ER TABLET PO SCH (08:06)
[2020-02-09 16:00] VITALS: BP 135/90
[2020-02-09] MEDS: LORazepam 2 MG TABLET PO PRN (16:04)
[2020-02-09] MEDS ORDERED: NALT50TA PO (17:47)
[2020-02-09] MEDS ORDERED: BUPR-47 PO (17:47)
[2020-02-09] MEDS ORDERED: FLUO-191 PO (17:47)
[2020-02-09] MEDS ORDERED: OLAN5TAB30 PO (17:47)
[2020-02-09] MEDS: OLANZapine 5 MG RAPDIS TABLET PO SCH (20:12)
[2020-02-09] MEDS: ZOLPIDEM TARTRATE 10 MG TABLET PO PRN (22:36)
[2020-02-10 08:00] VITALS: BP 110/62
[2020-02-10] MEDS ORDERED: OLAN10TA6 PO (10:41)
[2020-02-10] MEDS: AmLODIPine BESYLATE 2.5 MG TABLET PO SCH (12:11)
[2020-02-10] MEDS: NALTREXONE HCL 50 MG TABLET PO SCH (12:11)
[2020-02-10] MEDS: MULTIVITAMINS WITH MINERALS, THERAPEUTIC TABLET PO SCH (12:11)
[2020-02-10] MEDS: FOLIC ACID 1 MG TABLET PO SCH (12:11)
[2020-02-10] MEDS: FLUoxetine HCL 20 MG CAPSULE PO SCH (12:12)
[2020-02-10] MEDS: BuPROPion HCL XL 150 MG ER TABLET PO SCH (12:12)
[2020-02-10] MEDS: THIAMINE 100 MG TABLET PO SCH (12:13)
== END 2020-02-10 14:20 | disposition home or self-care (01) | DRG 885 ==
LOC: EMS 22:45 → 3EI 02-04 02:49 → UNDOADMIN 02-04 02:49 → 3EI 02-04 02:55 → 3EX 02-04 22:47 → UNDODISIN 02-10 14:20
PROVIDERS: ADMIT Psychiatry & Neurology Psychiatry; ATTEND Psychiatry & Neurology Psychiatry
DX: F25.0 Schizoaffective disorder, bipolar type (principal); M62.82 Rhabdomyolysis; R45.851 Suicidal ideations; E66.9 Obesity, unspecified; E78.5 Hyperlipidemia, unspecified; I10 Essential (primary) hypertension; R73.03 Prediabetes; Z68.32 Body mass index [BMI] 32.0-32.9, adult; F32.9 Major depressive disorder, single episode, unspecified; F41.9 Anxiety disorder, unspecified; K59.00 Constipation, unspecified; R26.9 Unspecified abnormalities of gait and mobility; Z91.14 Patient's other noncompliance with medication regimen
CPT/HCPCS: 87081; G0378; Z7502; Z7610

== ENCOUNTER 2020-04-03 20:36 | Inpatient (IN) | payer MEDICARE, OTHER ==
[~2020-04-03] VITALS: Ht 172.7 cm; Wt 97.7 kg
[~2020-04-03 20:36] MED LIST changes: -MODA100T65 PO; -MULT-1239 PO; -OLAN10TA22 PO; +OLAN10TA6 PO
[2020-04-03 21:36] LABS: BASOPHILS % (AUTO) 0.7 % (0.0-2.0); EOSINOPHILS % (AUTO) 1.5 % (1.0-6.0); HEMOGLOBIN 12.8 g/dL (13.5-17.5); LYMPHOCYTES # (AUTO) 2.4 K/uL (1.0-4.8); LYMPHOCYTES % (AUTO) 29.5 % (22.0-44.0); MEAN CORPUSCULAR HEMOGLOBIN 31.2 pg (26.0-34.0); MEAN CORPUSCULAR HGB CONC 32.8 G/dL (31.0-37.0); MEAN CORPUSCULAR VOLUME 95 fL (80-100); MONOCYTES # (AUTO) 0.6 K/uL (0.1-1.0); MONOCYTES % (AUTO) 6.9 % (2.0-9.0); NEUTROPHILS # (AUTO) 5.1 K/uL (1.8-7.7); NEUTROPHILS % (AUTO) 61.4 % (40.0-70.0); PLATELET COUNT (AUTO) 223 K/uL (150-450); RED CELL DISTRIBUTION WIDTH 14.7 % (11.5-14.5)
[2020-04-03 21:42] LABS: ANION GAP 3 mmol/L (8-16); CALCIUM, TOTAL 8.7 mg/dL (8.8-10.5); CARBON DIOXIDE 29 mmol/L (22-29); CHLORIDE 107 mmol/L (98-107); CREATININE 1.03 mg/dL (0.60-1.30); GLOMERULAR FILTR. RATE CALC > 60 mL/min (>60); GLUCOSE,RANDOM 126 mg/dL (70-110); POTASSIUM 3.3 mmol/L (3.5-5.1); SODIUM SERUM 139 mmol/L (136-145); UREA NITROGEN, BLOOD 24 mg/dL (7-18)
[2020-04-03 21:48] LABS: ALANINE AMINOTRANSFERASE 28 U/L (12-78); ALBUMIN 3.5 g/dL (3.4-5.0); ALKALINE PHOSPHATASE 73 U/L (46-116); ASPARTATE AMINOTRANSFERASE 18 U/L (15-37); BILIRUBIN,TOTAL 0.2 mg/dL (0.1-1.0); TOTAL PROTEIN, SERUM 7.1 g/dL (6.4-8.2)
[2020-04-03] MEDS ORDERED: POTASSIUM CHLORIDE 20 MEQ ER TABLET PO ONE (23:45)
[2020-04-03] MEDS ORDERED: ACETAMINOPHEN 500 MG TABLET PO ONE (23:45)
[2020-04-04] MEDS ORDERED: ACETAMINOPHEN 325 MG TABLET PO PRN (03:00)
[2020-04-04] MEDS ORDERED: ONDANSETRON HCL 4 MG/2 ML VIAL IVP PRN ×2 (03:00→06:15)
[2020-04-04] MEDS ORDERED: 0.9% SODIUM CHLORIDE 10 ML SYRINGE IVP PRN (03:00)
[2020-04-04 03:47] VITALS: BP 115/73
[2020-04-04 05:33] VITALS: BP 112/59
[2020-04-04] MEDS ORDERED: POTASSIUM CHLORIDE 20 MEQ ER TABLET PO ONE (06:15)
[2020-04-04 08:32] VITALS: BP 122/68
[2020-04-04] MEDS: ENOXAPARIN SODIUM 40 MG/0.4 ML PF SYRINGE SQ SCH ×2 (08:43→08:51)
[2020-04-04] MEDS: FLUoxetine HCL 20 MG CAPSULE PO SCH (08:44)
[2020-04-04] MEDS: BuPROPion HCL XL 150 MG ER TABLET PO SCH (08:44)
[2020-04-04] MEDS ORDERED: AmLODIPine BESYLATE 2.5 MG TABLET PO SCH (09:00)
[2020-04-04 15:33] VITALS: BP 124/86
[2020-04-04 18:18] LABS: AMPHET/METH SCREEN,URINE NEGATIVE (NEGATIVE); BARBITURATE SCREEN, URINE NEGATIVE (NEGATIVE); BENZODIAZEPINES SCREEN,URINE NEGATIVE (NEGATIVE); CANNABINOID SCREEN,URINE NEGATIVE (NEGATIVE); COCAINE SCREEN,URINE NEGATIVE (NEGATIVE); METHADONE SCREEN, URINE NEGATIVE (NEGATIVE); OPIATE SCREEN,URINE NEGATIVE (NEGATIVE)
[2020-04-04 18:22] LABS: PHENCYCLIDINE SCREEN,URINE NEGATIVE (NEGATIVE)
[2020-04-04 19:27] VITALS: BP 124/75
[2020-04-04] MEDS: OLANZapine 5 MG RAPDIS TABLET PO SCH (20:11)
[2020-04-04] MEDS: MELATONIN 3 MG TABLET PO PRN (23:48)
[2020-04-04 23:55] VITALS: BP 103/56
[2020-04-05 04:51] VITALS: BP 119/83
[2020-04-05 08:31] VITALS: BP 125/64
[2020-04-05] MEDS: BuPROPion HCL XL 150 MG ER TABLET PO SCH ×2 (08:58→09:00)
[2020-04-05] MEDS: FLUoxetine HCL 20 MG CAPSULE PO SCH ×2 (08:58→09:00)
[2020-04-05] MEDS: ENOXAPARIN SODIUM 40 MG/0.4 ML PF SYRINGE SQ SCH (09:00)
[2020-04-05 15:24] VITALS: BP 122/68
[2020-04-05 19:38] VITALS: BP 142/70
[2020-04-05] MEDS: OLANZapine 5 MG RAPDIS TABLET PO SCH (19:55)
[2020-04-05] MEDS ORDERED: HALOPERIDOL LACTATE 5 MG/ML VIAL IM ONE (21:00)
[2020-04-05] MEDS: MELATONIN 3 MG TABLET PO PRN (21:11)
[2020-04-05 23:30] VITALS: BP 108/62
[2020-04-06 04:21] VITALS: BP 97/50
[2020-04-06] MEDS: BuPROPion HCL XL 150 MG ER TABLET PO SCH (08:54)
[2020-04-06] MEDS: FLUoxetine HCL 20 MG CAPSULE PO SCH (08:54)
[2020-04-06] MEDS: ENOXAPARIN SODIUM 40 MG/0.4 ML PF SYRINGE SQ SCH (08:57)
[2020-04-06 15:34] VITALS: BP 123/58
[2020-04-06 19:29] VITALS: BP 119/76
[2020-04-06 20:00] VITALS: BP 119/76
[2020-04-06] MEDS: OLANZapine 5 MG RAPDIS TABLET PO SCH (20:31)
[2020-04-06] MEDS: MELATONIN 3 MG TABLET PO PRN (22:05)
[2020-04-07 04:00] VITALS: BP 120/72
[2020-04-07 08:00] VITALS: BP 119/70
[2020-04-07] MEDS: FLUoxetine HCL 20 MG CAPSULE PO SCH (08:28)
[2020-04-07] MEDS: BuPROPion HCL XL 150 MG ER TABLET PO SCH (08:28)
[2020-04-07] MEDS: ENOXAPARIN SODIUM 40 MG/0.4 ML PF SYRINGE SQ SCH (08:29)
[2020-04-07 16:00] VITALS: BP 108/76
[2020-04-07 19:49] VITALS: BP 135/92
[2020-04-07] MEDS: OLANZapine 5 MG RAPDIS TABLET PO SCH (20:00)
[2020-04-07] MEDS: MELATONIN 3 MG TABLET PO PRN (20:01)
[2020-04-08] MEDS: ENOXAPARIN SODIUM 40 MG/0.4 ML PF SYRINGE SQ SCH (09:00)
[2020-04-08] MEDS: FLUoxetine HCL 20 MG CAPSULE PO SCH (14:30)
[2020-04-08] MEDS: BuPROPion HCL XL 150 MG ER TABLET PO SCH (14:30)
[2020-04-08] MEDS: OLANZapine 5 MG RAPDIS TABLET PO SCH (20:05)
[2020-04-08 23:40] VITALS: BP 98/57
[2020-04-09 04:46] VITALS: BP 108/55
[2020-04-09 07:52] VITALS: BP 92/56
[2020-04-09] MEDS: ENOXAPARIN SODIUM 40 MG/0.4 ML PF SYRINGE SQ SCH ×2 (09:00→09:57)
[2020-04-09] MEDS: BuPROPion HCL XL 150 MG ER TABLET PO SCH (09:55)
[2020-04-09] MEDS: FLUoxetine HCL 20 MG CAPSULE PO SCH (09:55)
[2020-04-09 11:21] VITALS: BP 103/68
[2020-04-09 15:10] VITALS: BP 111/45
== END 2020-04-09 19:30 | DRG 885 ==
LOC: EMS 20:38 → UNDOADMIN 04-04 02:46 → 6N 04-04 02:46 → 4E 04-05 12:28
PROVIDERS: ADMIT Internal Medicine; ATTEND Internal Medicine
DX: F25.1 Schizoaffective disorder, depressive type (principal); R45.851 Suicidal ideations; Z20.828 Contact with and (suspected) exposure to other viral communicable diseases; Z68.32 Body mass index [BMI] 32.0-32.9, adult; I10 Essential (primary) hypertension; Z87.891 Personal history of nicotine dependence; Z87.01 Personal history of pneumonia (recurrent); J44.9 Chronic obstructive pulmonary disease, unspecified; E78.00 Pure hypercholesterolemia, unspecified; M19.90 Unspecified osteoarthritis, unspecified site; E66.9 Obesity, unspecified; F41.9 Anxiety disorder, unspecified
CPT/HCPCS: 84132; 87426; G0378; G0480; J1630; J1650

== ENCOUNTER 2023-08-19 14:39 | Emergency (ER) | payer MEDICARE, OTHER ==
[~2023-08-19] VITALS: Ht 180.3 cm; Wt 100.0 kg
[~2023-08-19 14:39] MED LIST changes: -AMLO2.5T96 PO; -BUPR-47 PO; -FLUO-191 PO; +MIRT-89 PO; +OLAN10TA22 PO; -OLAN10TA6 PO; +OMEG-135 PO
[2023-08-19 16:27] VITALS: TEMP 99.1
[2023-08-19 16:33] LABS: APPEARANCE,URINE HAZY (CLEAR); BILIRUBIN,URINE NEGATIVE (NEGATIVE); COLOR,URINE YELLOW (YELLOW); GLUCOSE, URINE (UA) NEGATIVE (NEGATIVE); KETONES,URINE NEGATIVE (NEGATIVE); LEUKOCYTE ESTERASE ,URINE LARGE (NEGATIVE); NITRATE,URINE POSITIVE (NEGATIVE); OCCULT BLOOD,URINE TRACE (NEGATIVE); PH,URINE 5.5 (5.0-8.0); PROTEIN,URINE 30-70 mg/dL (NEGATIVE); SPECIFIC GRAVITIY, URINE 1.022 (1.003-1.030); UROBILINOGEN,URINE <=1.0 mg/dL (<=1.0)
[2023-08-19 16:48] LABS: BACTERIA,URINE Many /HPF (None Seen); SQUAMOUS EPITHELIAL CELL,UR Few /LPF (None Seen)
[2023-08-19 16:50] LABS: COVID AG,FIA SOURCE NASAL SWAB
[2023-08-19 17:16] LABS: SARS-COV2 (COVID) ANTIGEN,FIA Negative (Negative)
[2023-08-19 17:18] LABS: BASOPHILS % (AUTO) 0.7 % (0.0-2.0); EOSINOPHILS % (AUTO) 0.9 % (1.0-6.0); HEMATOCRIT 45.2 % (41-53); HEMOGLOBIN 14.4 g/dL (13.5-17.5); LYMPHOCYTES # (AUTO) 4.5 K/uL (1.0-4.8); LYMPHOCYTES % (AUTO) 48.7 % (22.0-44.0); MEAN CORPUSCULAR HEMOGLOBIN 30.2 pg (26.0-34.0); MEAN CORPUSCULAR HGB CONC 31.9 G/dL (31.0-37.0); MEAN CORPUSCULAR VOLUME 95 fL (80-100); MONOCYTES # (AUTO) 0.7 K/uL (0.1-1.0); MONOCYTES % (AUTO) 7.4 % (2.0-9.0); NEUTROPHILS # (AUTO) 3.9 K/uL (1.8-7.7); NEUTROPHILS % (AUTO) 42.3 % (40.0-70.0); PLATELET COUNT (AUTO) 250 K/uL (150-450); RED BLOOD CELL COUNT(AUTO) 4.79 MIL/uL (4.50-5.90); RED CELL DISTRIBUTION WIDTH 15.6 % (11.5-14.5); WHITE BLOOD COUNT (AUTO) 9.2 K/uL (4.5-11.0)
[2023-08-19 18:14] LABS: ANION GAP 15 mmol/L (8-16); CARBON DIOXIDE 19 mmol/L (22-29); CHLORIDE 103 mmol/L (98-107); CREATININE 0.47 mg/dL (0.60-1.30); GLOMERULAR FILTR. RATE CALC > 60 mL/min (>60); GLUCOSE,RANDOM 97 mg/dL (70-110); POTASSIUM 4.3 mmol/L (3.5-5.1); SODIUM SERUM 137 mmol/L (136-145); UREA NITROGEN, BLOOD 18 mg/dL (7-18)
[2023-08-19 18:21] LABS: ALANINE AMINOTRANSFERASE 23 U/L (12-78); ALBUMIN 3.4 g/dL (3.4-5.0); ALKALINE PHOSPHATASE 71 U/L (46-116); ASPARTATE AMINOTRANSFERASE 32 U/L (15-37); BILIRUBIN,TOTAL 0.9 mg/dL (0.1-1.0); TOTAL PROTEIN, SERUM 7.4 g/dL (6.4-8.2)
[2023-08-19 18:28] LABS: CALCIUM, TOTAL 9.3 mg/dL (8.8-10.5)
[2023-08-19 19:30] VITALS: BP 146/76; PULSE 99; RESP 16
[2023-08-19] MEDS ORDERED: CEPHALEXIN MONOHYDRATE 500 MG CAPSULE PO ONE (20:30)
== END 2023-08-19 22:28 ==
LOC: EMS 14:39
DX: N39.0 Urinary tract infection, site not specified (principal); F41.9 Anxiety disorder, unspecified; F31.9 Bipolar disorder, unspecified; E78.00 Pure hypercholesterolemia, unspecified; I10 Essential (primary) hypertension; E03.9 Hypothyroidism, unspecified; F20.9 Schizophrenia, unspecified; Z20.822 Contact with and (suspected) exposure to COVID-19
CPT/HCPCS: 80053; 81001; 85025; 87086; 87186; 99283